=== PATIENT | female | born 1985 | race Two or more races ===

== ENCOUNTER → 2016-09-09 | Outpatient (REF) | payer OTHER ==
[2016-09-09 17:40] LABS: MEAN CORPUSCULAR HEMOGLOBIN 30.8 pg (27.0-33.0); MEAN CORPUSCULAR HGB CONC 32.4 g/dl (32.0-36.5); MEAN CORPUSCULAR VOLUME 95.2 fl (80.0-96.0); RED CELL DISTRIBUTION WIDTH 12.1 % (11.5-14.5); WHITE BLOOD COUNT 6.4 K/mm3 (4.0-10.0)
[2016-09-09 18:06] LABS: ALBUMIN 3.3 GM/DL (3.2-5.2); ALBUMIN/GLOBULIN RATIO 0.89 (1.00-1.93); ALKALINE PHOSPHATASE 58 U/L (45-117); ALT/SGPT 15 U/L (12-78); ANION GAP 8 MEQ/L (8-16); AST/SGOT 8 U/L (15-37); BILIRUBIN,TOTAL 0.3 MG/DL (0.2-1.0); BLOOD UREA NITROGEN 11 MG/DL (7-18); CALCIUM LEVEL 8.2 MG/DL (8.5-10.1); CARBON DIOXIDE LEVEL 27 MEQ/L (21-32); CHLORIDE LEVEL 104 MEQ/L (98-107); CHOLESTEROL LEVEL 199 MG/DL (<200); CREATININE FOR GFR 0.86 MG/DL (0.55-1.02); GLOMERULAR FILTRATION RATE > 60.0 (>60); GLUCOSE, FASTING 90 MG/DL (70-105); POTASSIUM SERUM 4.1 MEQ/L (3.5-5.1); SODIUM LEVEL 139 MEQ/L (136-145); TRIGLYCERIDES LEVEL 159 MG/DL (<150)
== END ==
LOC: M SFHCCLAY 10:50
PROVIDERS: ATTEND Nurse Practitioner Family
DX: E78.4 Other hyperlipidemia (principal); E55.9 Vitamin D deficiency, unspecified

== ENCOUNTER → 2016-11-06 | Outpatient (REF) | payer OTHER ==
[2016-11-06 17:39] LABS: ALBUMIN 3.4 GM/DL (3.2-5.2); ALBUMIN/GLOBULIN RATIO 0.85 (1.00-1.93); ALKALINE PHOSPHATASE 54 U/L (45-117); ALT/SGPT 18 U/L (12-78); ANION GAP 6 MEQ/L (8-16); AST/SGOT 14 U/L (15-37); BILIRUBIN,TOTAL 0.2 MG/DL (0.2-1.0); BLOOD UREA NITROGEN 9 MG/DL (7-18); CALCIUM LEVEL 8.8 MG/DL (8.5-10.1); CARBON DIOXIDE LEVEL 27 MEQ/L (21-32); CHLORIDE LEVEL 107 MEQ/L (98-107); CREATININE FOR GFR 0.87 MG/DL (0.55-1.02); GLOMERULAR FILTRATION RATE > 60.0 (>60); GLUCOSE, FASTING 116 MG/DL (70-105); POTASSIUM SERUM 3.7 MEQ/L (3.5-5.1); SODIUM LEVEL 140 MEQ/L (136-145); THYROXINE (T4) 12.1 UG/DL (4.5-12.0); TOTAL PROTEIN 7.4 GM/DL (6.4-8.2)
[2016-11-06 18:03] LABS: MEAN CORPUSCULAR HEMOGLOBIN 31.6 pg (27.0-33.0); RED CELL DISTRIBUTION WIDTH 12.3 % (11.5-14.5); WHITE BLOOD COUNT 6.5 K/mm3 (4.0-10.0)
== END ==
LOC: M LAB REF 16:37
PROVIDERS: ATTEND Allergy & Immunology Allergy
DX: L50.8 Other urticaria (principal); T78.3XXD Angioneurotic edema, subsequent encounter

== ENCOUNTER → 2017-02-06 | Outpatient (REF) | payer OTHER | LOC: M SFHCCLAY 11:03 | PROVIDERS: ATTEND Nurse Practitioner Family | DX: E78.4 Other hyperlipidemia (principal); E55.9 Vitamin D deficiency, unspecified ==

== ENCOUNTER → 2017-08-04 | Outpatient (REF) | payer OTHER ==
[2017-08-04 11:25] LABS: HEMATOCRIT 35.5 % (36.0-47.0); HEMOGLOBIN 11.4 g/dl (12.0-16.0); MEAN CORPUSCULAR HEMOGLOBIN 29.9 pg (27.0-33.0); MEAN CORPUSCULAR HGB CONC 32.1 g/dl (32.0-36.5); MEAN CORPUSCULAR VOLUME 93.2 fl (80.0-96.0); PLATELET COUNT, AUTOMATED 260 10^3/uL (150-450); RED BLOOD COUNT 3.81 10^6/uL (4.00-5.40); RED CELL DISTRIBUTION WIDTH 12.3 % (11.5-14.5); WHITE BLOOD COUNT 7.9 10^3/uL (4.0-10.0)
[2017-08-04 12:11] LABS: TOTAL 25(OH) VITAMIN D 33.3 NG/ML (30.0-100.0)
[2017-08-04 12:38] LABS: ALBUMIN 3.4 GM/DL (3.2-5.2); ALBUMIN/GLOBULIN RATIO 0.85 (1.00-1.93); ALKALINE PHOSPHATASE 54 U/L (45-117); ALT/SGPT 35 U/L (12-78); ANION GAP 7 MEQ/L (8-16); AST/SGOT 22 U/L (7-37); BILIRUBIN,TOTAL 0.3 MG/DL (0.2-1.0); BLOOD UREA NITROGEN 13 MG/DL (7-18); CALCIUM LEVEL 8.9 MG/DL (8.5-10.1); CARBON DIOXIDE LEVEL 27 MEQ/L (21-32); CHLORIDE LEVEL 105 MEQ/L (98-107); CHOLESTEROL LEVEL 182 MG/DL (<200); CHOLESTEROL RISK RATIO 2.716 (<5); CREATININE FOR GFR 0.83 MG/DL (0.55-1.30); GLOMERULAR FILTRATION RATE > 60.0 (>60); GLUCOSE, FASTING 75 MG/DL (70-100); HDL CHOLESTEROL 67 MG/DL (>40); LDL CHOLESTEROL 88.6 MG/DL (<100); NON-HDL-C 115 MG/DL; POTASSIUM SERUM 4.3 MEQ/L (3.5-5.1); SODIUM LEVEL 139 MEQ/L (136-145); TOTAL PROTEIN 7.4 GM/DL (6.4-8.2); TRIGLYCERIDES LEVEL 132 MG/DL (<150)
== END ==
LOC: M SFHCCLAY 08:57
DX: L50.1 Idiopathic urticaria (principal); E78.4 Other hyperlipidemia; R94.6 Abnormal results of thyroid function studies; E55.9 Vitamin D deficiency, unspecified
CPT/HCPCS: 84443

== ENCOUNTER → 2017-10-14 | Outpatient (REF) | payer OTHER | LOC: M SFHCCLAY 11:14 | DX: Z68.39 Body mass index [BMI] 39.0-39.9, adult (principal) ==

== ENCOUNTER → 2018-02-12 | Outpatient (REF) | payer OTHER ==
[2018-02-12 11:33] LABS: HEMATOCRIT 35.2 % (36.0-47.0); HEMOGLOBIN 11.4 g/dl (12.0-15.5); MEAN CORPUSCULAR HEMOGLOBIN 30.3 pg (27.0-33.0); MEAN CORPUSCULAR HGB CONC 32.4 g/dl (32.0-36.5); MEAN CORPUSCULAR VOLUME 93.6 fl (80.0-96.0); PLATELET COUNT, AUTOMATED 227 10^3/uL (150-450); RED BLOOD COUNT 3.76 10^6/uL (4.00-5.40); RED CELL DISTRIBUTION WIDTH 12.2 % (11.5-14.5); WHITE BLOOD COUNT 6.7 10^3/uL (4.0-10.0)
== END ==
LOC: M SFHCCLAY 09:19
DX: L50.1 Idiopathic urticaria (principal); R94.6 Abnormal results of thyroid function studies

== ENCOUNTER → 2018-08-16 | Outpatient (REF) | payer OTHER ==
[2018-08-16 17:32] LABS: ALBUMIN 3.2 GM/DL (3.2-5.2); ALT/SGPT 33 U/L (12-78); BILIRUBIN,TOTAL 0.5 MG/DL (0.2-1.0); BLOOD UREA NITROGEN 9 MG/DL (7-18); CARBON DIOXIDE LEVEL 28 MEQ/L (21-32); CHLORIDE LEVEL 104 MEQ/L (98-107); CHOLESTEROL LEVEL 193 MG/DL (<200); CHOLESTEROL RISK RATIO 3.641 (<5); CREATININE FOR GFR 0.62 MG/DL (0.55-1.30); GLOMERULAR FILTRATION RATE > 60.0 (>60); GLUCOSE, FASTING 95 MG/DL (70-100); HDL CHOLESTEROL 53 MG/DL (>40); LDL CHOLESTEROL 106 MG/DL (<100); NON-HDL-C 140 MG/DL; POTASSIUM SERUM 3.9 MEQ/L (3.5-5.1); SODIUM LEVEL 138 MEQ/L (136-145); THYROID STIMULATING HORMONE 0.005 uIU/ML (0.358-3.740); TOTAL 25(OH) VITAMIN D 22.5 NG/ML (30.0-100.0); TRIGLYCERIDES LEVEL 172 MG/DL (<150)
[2018-08-16 17:37] LABS: HEMATOCRIT 37.9 % (36.0-47.0); HEMOGLOBIN 12.1 g/dl (12.0-15.5); MEAN CORPUSCULAR HEMOGLOBIN 28.4 pg (27.0-33.0); MEAN CORPUSCULAR HGB CONC 31.9 g/dl (32.0-36.5); PLATELET COUNT, AUTOMATED 281 10^3/uL (150-450); RED BLOOD COUNT 4.26 10^6/uL (4.00-5.40); WHITE BLOOD COUNT 6.3 10^3/uL (4.0-10.0)
== END ==
LOC: M SFHCCLAY 11:30
PROVIDERS: ATTEND Nurse Practitioner Family
DX: L50.1 Idiopathic urticaria (principal); E78.49 Other hyperlipidemia; E03.9 Hypothyroidism, unspecified; E55.9 Vitamin D deficiency, unspecified

== ENCOUNTER → 2018-11-16 | Outpatient (REF) | payer OTHER ==
[2018-11-16 19:26] LABS: THYROID STIMULATING HORMONE 0.009 uIU/ML (0.358-3.740)
== END ==
LOC: M SFHCCLAY 10:00
PROVIDERS: ATTEND Nurse Practitioner Family
DX: E03.9 Hypothyroidism, unspecified (principal); E55.9 Vitamin D deficiency, unspecified

== ENCOUNTER → 2019-01-25 | Outpatient (REF) | payer OTHER | LOC: M SFHCCLAY 08:38 | PROVIDERS: ATTEND Nurse Practitioner Family | DX: E03.9 Hypothyroidism, unspecified (principal) ==

== ENCOUNTER → 2019-06-02 | Outpatient (REF) | payer OTHER | LOC: M SFHCCLAY 12:11 | PROVIDERS: ATTEND Nurse Practitioner Family | DX: E03.9 Hypothyroidism, unspecified (principal) ==

== ENCOUNTER → 2019-10-05 | Outpatient (REF) | payer OTHER ==
[2019-10-05 16:12] LABS: HEMATOCRIT 36.7 % (36.0-47.0); HEMOGLOBIN 11.8 g/dl (12.0-15.5); MEAN CORPUSCULAR HEMOGLOBIN 30.6 pg (27.0-33.0); MEAN CORPUSCULAR HGB CONC 32.2 g/dl (32.0-36.5); MEAN CORPUSCULAR VOLUME 95.3 fl (80.0-96.0); PLATELET COUNT, AUTOMATED 254 10^3/uL (150-450); RED BLOOD COUNT 3.85 10^6/uL (4.00-5.40); WHITE BLOOD COUNT 7.4 10^3/uL (4.0-10.0)
[2019-10-05 16:53] LABS: ALBUMIN 3.3 GM/DL (3.2-5.2); ALT/SGPT 14 U/L (12-78); BILIRUBIN,TOTAL 0.5 MG/DL (0.2-1.0); BLOOD UREA NITROGEN 12 MG/DL (7-18); CALCIUM LEVEL 8.5 MG/DL (8.5-10.1); CARBON DIOXIDE LEVEL 27 MEQ/L (21-32); CHLORIDE LEVEL 106 MEQ/L (98-107); CHOLESTEROL LEVEL 189 MG/DL (<200); CHOLESTEROL RISK RATIO 3.315 (<5); CREATININE FOR GFR 0.74 MG/DL (0.55-1.30); GLOMERULAR FILTRATION RATE > 60.0 (>60); GLUCOSE, FASTING 83 MG/DL (70-100); HDL CHOLESTEROL 57 MG/DL (>40); LDL CHOLESTEROL 93 MG/DL (<100); NON-HDL-C 132 MG/DL; SODIUM LEVEL 138 MEQ/L (136-145); TOTAL 25(OH) VITAMIN D 20.8 NG/ML (30.0-100.0); TOTAL PROTEIN 7.1 GM/DL (6.4-8.2); TRIGLYCERIDES LEVEL 195 MG/DL (<150)
== END ==
LOC: M SFHCCLAY 10:21
PROVIDERS: ATTEND Nurse Practitioner Family
DX: E78.5 Hyperlipidemia, unspecified (principal); E03.9 Hypothyroidism, unspecified; E55.9 Vitamin D deficiency, unspecified

== ENCOUNTER → 2020-01-03 | Outpatient (REF) | payer OTHER ==
[2020-01-03 20:15] LABS: BASO % 0.5 % (0.0-1.0); EOS # 0.2 10^3/uL (0.0-0.5); EOS % 3.4 % (0.0-3.0); HEMATOCRIT 36.4 % (36.0-47.0); LYMPH # 2.2 10^3/uL (1.5-5.0); MEAN CORPUSCULAR HEMOGLOBIN 31.2 pg (27.0-33.0); MEAN CORPUSCULAR VOLUME 94.5 fl (80.0-96.0); MONO # 0.6 10^3/uL (0.0-0.8); MONO % 10.4 % (0.0-5.0); NEUTROPHILS # 2.8 10^3/uL (1.5-8.5); NEUTROPHILS % 48.4 % (36.0-66.0); PLATELET COUNT, AUTOMATED 270 10^3/uL (150-450); RED BLOOD COUNT 3.85 10^6/uL (4.00-5.40); WHITE BLOOD COUNT 5.9 10^3/uL (4.0-10.0)
[2020-01-03 20:33] LABS: ALBUMIN 3.4 GM/DL (3.2-5.2); ALT/SGPT 22 U/L (12-78); BILIRUBIN,TOTAL 0.4 MG/DL (0.2-1.0); BLOOD UREA NITROGEN 11 MG/DL (7-18); CALCIUM LEVEL 9.2 MG/DL (8.5-10.1); CARBON DIOXIDE LEVEL 27 MEQ/L (21-32); CHLORIDE LEVEL 107 MEQ/L (98-107); CREATININE FOR GFR 0.81 MG/DL (0.55-1.30); GLOMERULAR FILTRATION RATE > 60.0 (>60); GLUCOSE, FASTING 97 MG/DL (70-100); SODIUM LEVEL 140 MEQ/L (136-145); TOTAL PROTEIN 7.1 GM/DL (6.4-8.2)
== END ==
LOC: M LABDRAWC 10:46
PROVIDERS: ATTEND Allergy & Immunology Allergy
DX: L50.1 Idiopathic urticaria (principal)

== ENCOUNTER → 2020-01-03 | Outpatient (REF) | payer OTHER ==
[2020-01-03 20:33] LABS: CHOLESTEROL LEVEL 182 MG/DL (<200); HDL CHOLESTEROL 56 MG/DL (>40); LDL CHOLESTEROL 96 MG/DL (<100); NON-HDL-C 126 MG/DL; RHEUMATOID FACTOR QUANT < 10.0 IU/ML (<15.0); TRIGLYCERIDES LEVEL 149 MG/DL (<150)
[2020-01-06 01:11] LABS: ANA (HEP2) Negative (.); Lyme Disease IgG/IgM Antibodie <0.91 ISR (0.00-0.90); Lyme Disease IgM Ab Quantitati <0.80 index (0.00-0.79)
== END ==
LOC: M LABDRAWC 10:46
PROVIDERS: ATTEND Nurse Practitioner Family
DX: M79.18 Myalgia, other site (principal)

== ENCOUNTER 2020-06-24 06:46 | Emergency (ER) | payer OTHER ==
[~2020-06-24] VITALS: Ht 165.1 cm; Wt 118.7 kg
[2020-06-24 06:46] VITALS: BP 176/88
--- OUTSIDE RECORDS SUMMARY | 2020-06-24 06:51 | CCD | Continuity of Care Document ---
Author Author Ramya LACKEY M.D. 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 1 Tristin Lackey M.D. 09/07/2019 Levothyroxine Sodium 25mcg Tablets take 1 tablet (25 mcg) by oral route once daily for 30 days Unknown Epipen 2-Chaitanya 0.3mg/0 .3ML Solution Auto-Inject inject 0.3 milliliter (0.3 mg) by intram uscular route once as needed for anaphylaxis 2units Tristin Lackey M.D. Tri-Linyah 0.18/0.21 5/0.25 mg-35 mcg Tablets Unknown Medications Administered in Office Medication SIG Qnty Indications Ordering Provider Date Xolair Injection Tristin Lackey M.D. 05/02/2020 Therapeutic, Prophylactic Or Diagnostic Injection Subq/Im Injection Tristin Ronaldos jessica, Courtney 05/02/2020 Xolair Injection Tristin Ziyad, Courtney 04/11/2020 Therapeutic, Prophylactic Or Diagnostic Injection Subq/Im Injection Tristin Chros jessica, Courtney 04/11/2020 Therapeutic, Prophylactic Or Diagnostic Injection Subq/Im Injection Tristin Ronaldos jessica, Courtney 03/15/2020 Xolair Injection Tristin Ziyad, Courtney 02/23/2020 Therapeutic, Prophylactic Or Diagnostic Injection Subq/Im Injection Tristin Chros towcandie, Courtney 02/23/2020 Xolair Injection Tristin Ziyad, Courtney 02/02/2020 Therapeutic, Prophylactic Or Diagnostic Injection Subq/Im Injection Tristin Chros jessica, Courtney 02/02/2020 Xolair Injection Tristin Courtney Lackey 01/12/2020 Therapeutic, Prophylactic Or Diagnostic Injection Subq/Im Injection Tristin Ronaldos jessica, Courtney 01/12/2020 Therapeutic, Prophylactic Or Diagnostic Injection Subq/Im Injection Tristin Amy lopez M.D. 12/22/2019 Xolair Injection Tristin Courtney Lackey 12/01/2019 Therapeutic, Prophylactic Or Diagnostic Injection Subq/Im Injection Tristin Ronaldos towcandie, Courtney 12/01/2019 Xolair Injection Tristin Ziyad, Courtney 11/10/2019 Therapeutic, Prophylactic Or Diagnostic Injection Subq/Im Injection Tristin Ronaldos towcandie, Courtney 11/10/2019 Xolair Injection Tristin Chrkimmy, Courtney 10/20/2019 Therapeutic, Prophylactic Or Diagnostic Injection Subq/Im Injection Tristin Chros jessica, Courtney 10/20/2019 Xolair Injection Tristin Chrkimmy, Courtney 09/30/2019 Therapeutic, Prophylactic Or Diagnostic Injection Subq/Im Injection Tristin Ronaldos jessica, Courtney 09/30/2019 Xolair Injection Tristin Ziyad, Courtney 09/06/2019 Therapeutic, Prophylactic Or Diagnostic Injection Subq/Im Injection Tristinteri lopez M.D. 09/06/2019 Xolair Injection Tristin Lackey M.D. 08/16/2019 Therapeutic, Prophylactic Or Diagnostic Injection Subq/Im Injection Tristin Amy lopez M.D. 08/16/2019 Xolair Injection Tristin Lackey M.D. 07/22/2019 Therapeutic, Prophylactic Or Diagnostic Injection Subq/Im Injection Tristinteri lopez M.D. 07/22/2019 Xolair Injection Tristin Lackey M.D. 06/27/2019 Therapeutic, Prophylactic Or Diagnostic Injection Subq/Im Injection Tristinteri lopez M.D. 06/27/2019 Xolair 150 MG Injection Tristin Lackey M.D. 05/30/2019 Chemotherpy Admin Subcutaneous/Im Non-Ho rmonal Anti-Neoplastic Injection Tristin bhatti M.D. 05/30/2019 Therapeutic, Prophylactic Or Diagnostic Injection Subq/Im Injection Tristinteri lopez M.D. 05/30/2019 Xolair 150 MG Injection Aracelis Stacie MATERIAL HANDLER 2ND SHIFT-C 05/09/2019 Xolair 150 MG Injection Aracelisjhon Quinones MATERIAL HANDLER 2ND SHIFT-C 05/09/2019 Chemotherpy Admin Subcutaneous/Im Non-Ho rmonal Anti-Neoplastic Injection Aracelis Mc shafer MATERIAL HANDLER 2ND SHIFT-C 05/09/2019 Therapeutic, Prophylactic Or Diagnostic Injection Subq/Im Injection Aracelisjhon Quinones MATERIAL HANDLER 2ND SHIFT-C 05/09/2019 Xolair 150 MG Injection Tristin Lackey M.D. 04/18/2019 Chemotherpy Admin Subcutaneous/Im Non-Ho rmonal Anti-Neoplastic Injection Tristinteri bhatti M.D. 04/18/2019 Therapeutic, Prophylactic Or Diagnostic Injection Subq/Im Injection Tristinteri lopez M.D. 04/18/2019 Xolair 150 MG Injection Tristin Lackey M.D. 03/24/2019 Chemotherpy Admin Subcutaneous/Im Non-Ho rmonal Anti-Neoplastic Injection Tristin bhatti M.D. 03/24/2019 Therapeutic, Prophylactic Or Diagnostic Injection Subq/Im Injection Tristin lopez M.D. 03/24/2019 Xolair 150 MG Injection Tristin Lackey M.D. 03/03/2019 Chemotherpy Admin Subcutaneous/Im Non-Ho rmonal Anti-Neoplastic Injection Tristin bhatti M.D. 03/03/2019 Therapeutic, Prophylactic Or Diagnostic Injection Subq/Im Injection Tristin lopez M.D. 03/03/2019 Xolair 150 MG Injection Tristin Lackey M.D. 02/11/2019 Chemotherpy Admin Subcutaneous/Im Non-Ho rmonal Anti-Neoplastic Injection Tristin bhatti M.D. 02/11/2019 Chemotherpy Admin Subcutaneous/Im Non-Ho rmonal Anti-Neoplastic Injection Tristin bhatti M.D. 02/11/2019 Xolair 150 MG Injection Tristin Lackey M.D. 01/21/2019 Therapeutic, Prophylactic Or Diagnostic Injection Subq/Im Injection Tristin lopez M.D. 01/21/2019 Xolair 150 MG Injection Tristin Lackey M.D. 12/31/2018 Therapeutic, Prophylactic Or Diagnostic Injection Subq/Im Injection Tristin lopez M.D. 12/31/2018 Immunizations Description No Information Available Vital Signs Date Vital Result Comment 12/28/2019 2:20pm Weight 257.12 lb Height 65 inches 5'5" Heart Rate 80 /min Respiratory Rate 16 /min BP Systolic 137 mmHg BP Diastolic 80 mmHg BMI (Body Mass Index) 42.8 kg/m2 07/22/2019 9:12am Weight 249.00 lb Height 65 inches 5'5" Heart Rate 75 /min Respiratory Rate 16 /min BP Systolic 131 mmHg BP Diastolic 81 mmHg BMI (Body Mass Index) 41.4 kg/m2 Results Test Acquired Date Facility Test Result H/L Range Note Comprehensive Metabolic Profil 01/03/2020 [facility] Glucose, Fasting 97 mg/dL Normal 70-100 Blood Urea Nitrogen 11 mg/dL Normal 7-18 Creatinine For GFR 0.81 mg/dL Normal 0.55-1.30 Glomerular Filtration Rate > 60.0 Normal >60 1 Sodium Level 140 mEq/L Normal 136-145 Potassium Serum 4.0 mEq/L Normal 3.5-5.1 Chloride Level 107 mEq/L Normal 98-107 Carbon Dioxide Level 27 mEq/L Normal 21-32 Anion Gap 6 mEq/L Low 8-16 Calcium Level 9.2 mg/dL Normal 8.5-10.1 Ast/Sgot 12 U/L Normal 7-37 Alt/SGPT 22 U/L Normal 12-78 Alkaline Phosphatase 53 U/L Normal 45-117 Bilirubin,Total 0.4 mg/dL Normal 0.2-1.0 Total Protein 7.1 GM/DL Normal 6.4-8.2 Albumin 3.4 GM/DL Normal 3.2-5.2 Albumin/Globulin Ratio 0.9 Low 1.2-2.2 CBC With Differential 01/03/2020 [facility] White Blood Count 5.9 10 Normal 4.0-10.0 Red Blood Count 3.85 10 Low 4.00-5.40 Hemoglobin 12.0 g/dL Normal 12.0-15.5 Hematocrit 36.4 % Normal 36.0-47.0 Mean Corpuscular Volume 94.5 fl Normal 80.0-96.0 Mean Corpuscular Hemoglobin 31.2 pg Normal 27.0-33.0 Mean Corpuscular HGB Conc 33.0 g/dL Normal 32.0-36.5 Red Cell Distribution Width 11.9 % Normal 11.5-14.5 Platelet Count, Automated 270 10 Normal 150-450 Neutrophils % 48.4 % Normal 36.0-66.0 Lymph % 37.0 % Normal 24.0-44.0 [place] % 10.4 % High 0.0-5.0 Eos % 3.4 % High 0.0-3.0 Baso % 0.5 % Normal 0.0-1.0 Immature Granulocyte % 0.3 % Normal 0-3.0 Nucleated Red Blood Cell % 0.0 % Normal 0-0 Neutrophils # 2.8 10 Normal 1.5-8.5 Lymph # 2.2 10 Normal 1.5-5.0 [place] # 0.6 10 Normal 0.0-0.8 Eos # 0.2 10 Normal 0.0-0.5 Baso # 0.0 10 Normal 0.0-0.2 1 Units are mL/min/1.73 m2 Chronic Kidney Disease Staging per NKF: Stage I & II GFR >=60 Normal to Mildly Decreased Stage III GFR 30-59 Moderately Decreased Stage IV GFR 15-29 Severely Decreased Stage V GFR <15 Very Little GFR Left ESRD GFR <15 on CLINICAL DATA ABSTRACTOR Procedures Date Code Description Status 05/02/2020 60781 Therapeutic, Prophylactic Or Priya gnostic Injection Subq/Im Completed 04/11/2020 04213 Therapeutic, Prophylactic Or Priya gnostic Injection Subq/Im Completed 03/15/2020 36217 Therapeutic, Prophylactic Or Priya gnostic Injection Subq/Im Completed 02/23/2020 24687 Therapeutic, Prophylactic Or Priya gnostic Injection Subq/Im Completed 02/02/2020 12978 Therapeutic, Prophylactic Or Priya gnostic Injection Subq/Im Completed 01/12/2020 76612 Therapeutic, Prophylactic Or Priya gnostic Injection Subq/Im Completed 12/22/2019 34323 Therapeutic, Prophylactic Or Priya gnostic Injection Subq/Im Completed 12/01/2019 63288 Therapeutic, Prophylactic Or Priya gnostic Injection Subq/Im Completed 11/10/2019 00102 Therapeutic, Prophylactic Or Priya gnostic Injection Subq/Im Completed Medical Devices Description No Information Available Encounters Type Date Location Provider Dx Diagnosis Office Visit 12/28/2019 2:15p Main Office Tristin Lackey M.D. L50.1 Idiopathic urticaria Assessments Date Code Description Provider 05/02/2020 L50.1 Idiopathic urticaria Tristin oneal M.D. 05/02/2020 L50.1 Idiopathic urticaria Tristin oneal M.D. Plan of Treatment Future Appointment(s):* 05/23/2020 1:00 pm - Tristin Lackey M.D. at Main Office 12/28/2019 - Tristin Lackey M.D.* L50.1 Idiopathic urticaria* Recommendations:* May stay off Xyzal for now. May need to restart if symptoms start increasing. May still take extra Benadryl vs Hydroxyzine for breakthrough hives. The patient should return for next Xolair injection in 3 weeks as planned. The patient knows to bring the Epi-pen for each injection because of the risk of delayed anaphylaxis. * All * Follow up:* 12 months. Sooner if needed. Functional Status Description No Information Available Mental Status Description No Information Available Referrals Description No Information Available
--- OUTSIDE RECORDS SUMMARY | 2020-06-24 06:51 | CCD | Continuity of Care Document ---
Author Author Ramya LACKEY M.D. Organization Unknown Address [address], [address], [place] [address] Phone [phone] Care Team Providers Care Automatic Mounter Name Role Phone Marleny Valdovinos NP AUTM [...] 2ml L50. 1 Tristin Lackey M.D. 09/07/2019 Levocetirizine Dihydrochloride 5mg Tablets take one tablet by mouth every morning 30tabs Jeovany Lackey M.D. 01/06/2019 Levothyroxine Sodium 25mcg Tablets take 1 tablet (25 mcg) by oral route once daily for 30 days Unknown Hydroxyzine HCL 25mg Tablets take two tablets by mouth at noon and take three tablets at bedtime 150tabs Tristin Lackey M.D. Epipen 2-Chaitanya 0.3mg/0 .3ML Solution Auto-Inject inject 0.3 milliliter (0.3 mg) by intram uscular route once as needed for anaphylaxis 2units Tristin Lackey M.D. Tri-Linyah 0.18/0.21 5/0.25 mg-35 mcg Tablets Unknown Medications Administered in Office Medication SIG Qnty Indications Ordering Provider Date Xolair Sharif Lackey M.D. 06/07/2020 Therapeutic, Prophylactic Or Diagnostic Injection Subq/Im Injection Tristin lopez M.D. 06/07/2020 Xolair Injection Tristin Lackey M.D. 05/02/2020 Therapeutic, Prophylactic Or Diagnostic Injection Subq/Im Injection Tristin lopez M.D. 05/02/2020 Xolair Sharif Lackey M.D. 04/11/2020 Therapeutic, Prophylactic Or Diagnostic Injection Subq/Im Injection Tristin lopez M.D. 04/11/2020 Therapeutic, Prophylactic Or Diagnostic Injection Subq/Im Injection Tristin lopez M.D. 03/15/2020 Xolair Injection Tristin Lackey M.D. 02/23/2020 Therapeutic, Prophylactic Or Diagnostic Injection Subq/Im Injection Tristin lopez M.D. 02/23/2020 Xolair Sharif Lackey M.D. 02/02/2020 Therapeutic, Prophylactic Or Diagnostic Injection Subq/Im Injection Tristin lopez M.D. 02/02/2020 Xolair Injection Tristin Lackey M.D. 01/12/2020 Therapeutic, Prophylactic Or Diagnostic Injection Subq/Im Injection Tristin lopez M.D. 01/12/2020 Therapeutic, Prophylactic Or Diagnostic Injection Subq/Im Injection Tristin lopez M.D. 12/22/2019 Xolair Injection Tristin Lackey M.D. 12/01/2019 Therapeutic, Prophylactic Or Diagnostic Injection Subq/Im Injection Tristin lopez M.D. 12/01/2019 Xolair Injection Tristin Lackey M.D. 11/10/2019 Therapeutic, Prophylactic Or Diagnostic Injection Subq/Im Injection Tristin lopez M.D. 11/10/2019 Xolair Injection Tristin Ronaldkimmy, Courtney 10/20/2019 Therapeutic, Prophylactic Or Diagnostic Injection Subq/Im Injection Tristin Amy peraltaCourtney schreiber 10/20/2019 Xolair Injection Tristin Humbertorama, Courtney 09/30/2019 Therapeutic, Prophylactic Or Diagnostic Injection Subq/Im Injection Tristin Amy peraltaCourtney schreiber 09/30/2019 Xolair Injection Tristin Ronaldkimmy, Courtney 09/06/2019 Therapeutic, Prophylactic Or Diagnostic Injection Subq/Im Injection Tristin Amy peraltacandie, Courtney 09/06/2019 Xolair Injection Tristin Ronaldkimmy, Courtney 08/16/2019 Therapeutic, Prophylactic Or Diagnostic Injection Subq/Im Injection Tristin Amy peraltacandie, Courtney 08/16/2019 Xolair Injection Tristin ChrCourtney oneal 07/22/2019 Therapeutic, Prophylactic Or Diagnostic Injection Subq/Im Injection Tristin Amy peraltacandie, Courtney 07/22/2019 Xolair Injection Tristin Chrkimmy, Courtney 06/27/2019 Therapeutic, Prophylactic Or Diagnostic Injection Subq/Im Injection Tristin Amy peraltaCourtney schreiber 06/27/2019 Xolair 150 MG Injection Tristin ChrCourtney oneal 05/30/2019 Chemotherpy Admin Subcutaneous/Im Non-Ho rmonal Anti-Neoplastic Injection Tristinteri bhatti M.D. 05/30/2019 Therapeutic, Prophylactic Or Diagnostic Injection Subq/Im Injection Tristin Amy peraltacandie, Courtney 05/30/2019 Xolair 150 MG Injection Aracelis Stacie, SUMATRA OPENER-C 05/09/2019 Xolair 150 MG Injection Aracelis Stacie, SUMATRA OPENER-C 05/09/2019 Chemotherpy Admin Subcutaneous/Im Non-Ho rmonal Anti-Neoplastic Injection Aracelis Coa soni, SUMATRA OPENER-C 05/09/2019 Therapeutic, Prophylactic Or Diagnostic Injection Subq/Im Injection Aracelis Stacie , SUMATRA OPENER-C 05/09/2019 Xolair 150 MG Injection Tristin Courtney Lackey 04/18/2019 Chemotherpy Admin Subcutaneous/Im Non-Ho rmonal Anti-Neoplastic Injection Tristin bhatti M.D. 04/18/2019 Therapeutic, Prophylactic Or Diagnostic Injection Subq/Im Injection Tristin lopez M.D. 04/18/2019 Xolair 150 MG Injection [...] H/L Range Note Comprehensive Metabolic Profil 01/03/2020 [facility] Glucose, Fasting 97 mg/dL Normal 70-100 Blood [...] 0.9 Low 1.2-2.2 CBC With Differential 01/03/2020 [facility] White Blood Count 5.9 10 Normal 4.0-10.0 [...] 36.0-66.0 Lymph % 37.0 % Normal 24.0-44.0 [place] % 10.4 % High 0.0-5.0 Eos % 3.4 % High 0.0-3.0 Baso % 0.5 % Normal 0.0-1.0 Immature Granulocyte % 0.3 % Normal 0-3.0 Nucleated Red Blood Cell % 0.0 % Normal 0-0 Neutrophils # 2.8 10 Normal 1.5-8.5 Lymph # 2.2 10 Normal 1.5-5.0 [place] # 0.6 10 Normal 0.0-0.8 Eos # 0.2 10 Normal 0.0-0.5 Baso # 0.0 10 Normal 0.0-0.2 1 Units are mL/min/1.73 m2 Chronic Kidney Disease Staging per NKF: Stage I & II GFR >=60 Normal to Mildly Decreased Stage III GFR 30-59 Moderately Decreased Stage IV GFR 15-29 Severely Decreased Stage V GFR <15 Very Little GFR Left ESRD GFR <15 on BUFFER OPERATOR Procedures Date Code Description Status 06/07/2020 04654 Therapeutic, Prophylactic Or Priya gnostic Injection Subq/Im Completed 05/02/2020 51752 Therapeutic, Prophylactic Or Priya gnostic Injection Subq/Im Completed 04/11/2020 45696 Therapeutic, Prophylactic Or Priya gnostic Injection Subq/Im Completed 03/15/2020 09756 Therapeutic, Prophylactic Or Priya gnostic Injection Subq/Im Completed 02/23/2020 89341 Therapeutic, Prophylactic Or Priya gnostic Injection Subq/Im Completed 02/02/2020 94014 Therapeutic, Prophylactic Or Priya gnostic Injection Subq/Im Completed 01/12/2020 85154 Therapeutic, Prophylactic Or Priya gnostic Injection Subq/Im Completed 12/22/2019 66832 Therapeutic, Prophylactic Or Priya gnostic Injection Subq/Im Completed Medical Devices Description No Information Available Encounters Type Date Location Provider Dx Diagnosis Office Visit 12/28/2019 2:15p Main Office Tristin Lackey M.D. L50.1 Idiopathic urticaria Assessments Date Code Description Provider 06/07/2020 L50.1 Idiopathic urticaria Tristin oneal M.D. 06/07/2020 L50.1 Idiopathic urticaria Tristin oneal M.D. Plan of Treatment Future Appointment(s):* 06/28/2020 1:00 pm - Tristin Lackey M.D. at [...]
--- OUTSIDE RECORDS SUMMARY | 2020-06-24 06:51 | CCD | Continuity of Care Document ---
Author Author Ramya LACKEY M.D. Organization Unknown Address [address], [address], [place] [address] Phone [phone] Care Team Providers Care Railroad Mechanic Name Role Phone Marleny Valdovinos NP AUTM [...] Tristin Amy peraltaCourtney schreiber 09/30/2019 Xolair Injection Rtistin Ronaldkimmy, Courtney 09/06/2019 Therapeutic, Prophylactic Or Diagnostic [...] 05/30/2019 Xolair 150 MG Injection Aracelis Stacie, PIPE LINE WALKER-C 05/09/2019 Xolair 150 MG Injection Aracelis Stacie, PIPE LINE WALKER-C 05/09/2019 Chemotherpy Admin Subcutaneous/Im Non-Ho rmonal Anti-Neoplastic Injection Aracelis Coa soni, PIPE LINE WALKER-C 05/09/2019 Therapeutic, Prophylactic Or Diagnostic Injection Subq/Im Injection Aracelis Stacie , PIPE LINE WALKER-C 05/09/2019 Xolair 150 MG Injection Tristin Courtney [...] H/L Range Note Comprehensive Metabolic Profil 01/03/2020 [facility] Glucose, Fasting 97 mg/dL Normal 70-100 Blood [...] 0.9 Low 1.2-2.2 CBC With Differential 01/03/2020 [facility] White Blood Count 5.9 10 Normal 4.0-10.0 [...] 36.0-66.0 Lymph % 37.0 % Normal 24.0-44.0 [place] % 10.4 % High 0.0-5.0 Eos % 3.4 % High 0.0-3.0 Baso % 0.5 % Normal 0.0-1.0 Immature Granulocyte % 0.3 % Normal 0-3.0 Nucleated Red Blood Cell % 0.0 % Normal 0-0 Neutrophils # 2.8 10 Normal 1.5-8.5 Lymph # 2.2 10 Normal 1.5-5.0 [place] # 0.6 10 Normal 0.0-0.8 Eos # 0.2 10 Normal 0.0-0.5 Baso # 0.0 10 Normal 0.0-0.2 1 Units are mL/min/1.73 m2 Chronic Kidney Disease Staging per NKF: Stage I & II GFR >=60 Normal to Mildly Decreased Stage III GFR 30-59 Moderately Decreased Stage IV GFR 15-29 Severely Decreased Stage V GFR <15 Very Little GFR Left ESRD GFR <15 on CRACKING AND FANNING MACHINE OPERATOR Procedures Date Code Description Status 06/07/2020 07025 Therapeutic, Prophylactic Or Priya gnostic Injection Subq/Im Completed 05/02/2020 26010 Therapeutic, Prophylactic Or Priya gnostic Injection Subq/Im Completed 04/11/2020 93132 Therapeutic, Prophylactic Or Priya gnostic Injection Subq/Im Completed 03/15/2020 61771 Therapeutic, Prophylactic Or Priya gnostic Injection Subq/Im Completed 02/23/2020 02260 Therapeutic, Prophylactic Or Priya gnostic Injection Subq/Im Completed 02/02/2020 28046 Therapeutic, Prophylactic Or Priya gnostic Injection Subq/Im Completed 01/12/2020 93112 Therapeutic, Prophylactic Or Priya gnostic Injection Subq/Im Completed 12/22/2019 72217 Therapeutic, Prophylactic Or Priya gnostic Injection Subq/Im [...]
--- OUTSIDE RECORDS SUMMARY | 2020-06-24 06:51 | CCD | Continuity of Care Document ---
Author Author Rayma LACKEY M.D. Organization Unknown Address [address], [address], [place] [address] Phone [phone] Care Team Providers Care Access Rep Name Role Phone Marleny Valdovinos NP AUTM [...] Tristin Amy peraltacandie, Courtney 08/16/2019 Xolair Injection Tristni ChrCourtney oneal 07/22/2019 Therapeutic, Prophylactic Or Diagnostic [...] 05/30/2019 Xolair 150 MG Injection Aracelis Stacie, LADLE POURER-C 05/09/2019 Xolair 150 MG Injection Aracelis Stacie, LADLE POURER-C 05/09/2019 Chemotherpy Admin Subcutaneous/Im Non-Ho rmonal Anti-Neoplastic Injection Aracelis Coa soni, LADLE POURER-C 05/09/2019 Therapeutic, Prophylactic Or Diagnostic Injection Subq/Im Injection Aracelis Stacie , LADLE POURER-C 05/09/2019 Xolair 150 MG Injection Tristin Courtney [...] M.D. 01/21/2019 Xolair 150 MG Injection Tristin Lackye M.D. 12/31/2018 Therapeutic, Prophylactic Or Diagnostic Injection [...] H/L Range Note Comprehensive Metabolic Profil 01/03/2020 [facility] Glucose, Fasting 97 mg/dL Normal 70-100 [...] 0.9 Low 1.2-2.2 CBC With Differential 01/03/2020 [facility] White Blood Count 5.9 10 Normal [...] 36.0-66.0 Lymph % 37.0 % Normal 24.0-44.0 [place] % 10.4 % High 0.0-5.0 Eos % 3.4 % High 0.0-3.0 Baso % 0.5 % Normal 0.0-1.0 Immature Granulocyte % 0.3 % Normal 0-3.0 Nucleated Red Blood Cell % 0.0 % Normal 0-0 Neutrophils # 2.8 10 Normal 1.5-8.5 Lymph # 2.2 10 Normal 1.5-5.0 [place] # 0.6 10 Normal 0.0-0.8 Eos # 0.2 10 Normal 0.0-0.5 Baso # 0.0 10 Normal 0.0-0.2 1 Units are mL/min/1.73 m2 Chronic Kidney Disease Staging per NKF: Stage I & II GFR >=60 Normal to Mildly Decreased Stage III GFR 30-59 Moderately Decreased Stage IV GFR 15-29 Severely Decreased Stage V GFR <15 Very Little GFR Left ESRD GFR <15 on GAS DISPATCHER Procedures Date Code Description Status 06/07/2020 37445 Therapeutic, Prophylactic Or Priya gnostic Injection Subq/Im Completed 05/02/2020 03711 Therapeutic, Prophylactic Or Priya gnostic Injection Subq/Im Completed 04/11/2020 95601 Therapeutic, Prophylactic Or Priya gnostic Injection Subq/Im Completed 03/15/2020 26777 Therapeutic, Prophylactic Or Priya gnostic Injection Subq/Im Completed 02/23/2020 43167 Therapeutic, Prophylactic Or Priya gnostic Injection Subq/Im Completed 02/02/2020 36321 Therapeutic, Prophylactic Or Priya gnostic Injection Subq/Im Completed 01/12/2020 59244 Therapeutic, Prophylactic Or Priya gnostic Injection Subq/Im Completed 12/22/2019 70073 Therapeutic, Prophylactic Or Priya gnostic Injection Subq/Im [...]
[2020-06-24] MEDS ORDERED: TRI-TAB16 (06:52)
--- OUTSIDE RECORDS SUMMARY | 2020-06-24 06:52 | CCD | Continuity of Care Document ---
Author Author Ramya LACKEY M.D. Organization Unknown Address [address], [place] [address] Phone [phone] Care Team Providers Care Ship Erector Name Role Phone Marleny Valdovinos NP AUTM [...] Amy lopez M.D. 08/16/2019 Xolair Injection Tristin Lackye M.D. 07/22/2019 Therapeutic, Prophylactic Or Diagnostic Injection [...] 05/30/2019 Xolair 150 MG Injection Aracelis Stacie LIFE SKILLS COORDINATOR VOLUNTEER-C 05/09/2019 Xolair 150 MG Injection Aracelisjhon Quinones LIFE SKILLS COORDINATOR VOLUNTEER-C 05/09/2019 Chemotherpy Admin Subcutaneous/Im Non-Ho rmonal Anti-Neoplastic Injection Aracelis Mc shafer LIFE SKILLS COORDINATOR VOLUNTEER-C 05/09/2019 Therapeutic, Prophylactic Or Diagnostic Injection Subq/Im Injection Aracelisjhon Quinones LIFE SKILLS COORDINATOR VOLUNTEER-C 05/09/2019 Xolair 150 MG Injection Tristin Lackey [...] H/L Range Note Comprehensive Metabolic Profil 01/03/2020 [facility] Glucose, Fasting 97 mg/dL Normal 70-100 Blood [...] 0.9 Low 1.2-2.2 CBC With Differential 01/03/2020 [facility] White Blood Count 5.9 10 Normal 4.0-10.0 [...] 36.0-66.0 Lymph % 37.0 % Normal 24.0-44.0 [place] % 10.4 % High 0.0-5.0 Eos % 3.4 % High 0.0-3.0 Baso % 0.5 % Normal 0.0-1.0 Immature Granulocyte % 0.3 % Normal 0-3.0 Nucleated Red Blood Cell % 0.0 % Normal 0-0 Neutrophils # 2.8 10 Normal 1.5-8.5 Lymph # 2.2 10 Normal 1.5-5.0 [place] # 0.6 10 Normal 0.0-0.8 Eos # 0.2 10 Normal 0.0-0.5 Baso # 0.0 10 Normal 0.0-0.2 1 Units are mL/min/1.73 m2 Chronic Kidney Disease Staging per NKF: Stage I & II GFR >=60 Normal to Mildly Decreased Stage III GFR 30-59 Moderately Decreased Stage IV GFR 15-29 Severely Decreased Stage V GFR <15 Very Little GFR Left ESRD GFR <15 on ADULT CROSSING GUARD Procedures Date Code Description Status 05/02/2020 66648 Therapeutic, Prophylactic Or Priya gnostic Injection Subq/Im Completed 04/11/2020 [id number] Therapeutic, Prophylactic Or Priya gnostic Injection Subq/Im Completed 03/15/2020 90120 Therapeutic, Prophylactic Or Priya gnostic Injection Subq/Im Completed 02/23/2020 34935 Therapeutic, Prophylactic Or Priya gnostic Injection Subq/Im Completed 02/02/2020 56928 Therapeutic, Prophylactic Or Priya gnostic Injection Subq/Im Completed 01/12/2020 [id number] Therapeutic, Prophylactic Or Priya gnostic Injection Subq/Im Completed 12/22/2019 14924 Therapeutic, Prophylactic Or Priya gnostic Injection Subq/Im Completed 12/01/2019 52048 Therapeutic, Prophylactic Or Priya gnostic Injection Subq/Im Completed 11/10/2019 51730 Therapeutic, Prophylactic Or Priya gnostic Injection Subq/Im [...]
--- OUTSIDE RECORDS SUMMARY | 2020-06-24 06:52 | CCD | Continuity of Care Document ---
Author Author Ramya LACKEY M.D. Organization Unknown Address [address], [address], [place] [address] Phone [phone] Care Team Providers Care Relief Worker Name Role Phone Marleny Valdovinos NP AUTM [...] Syrin ge inject 300 mg subcutaneously every 4 weeks at two sites 2ml L50. 1 [...] Provider Date Xolair Injection Tristin Lackey M.D. 04/11/2020 Therapeutic, Prophylactic Or Diagnostic Injection Subq/Im Injection Tristin Chros towcandie, Courtney 04/11/2020 Therapeutic, Prophylactic Or Diagnostic Injection Subq/Im Injection Tristin Chros towcandie, Courtney 03/15/2020 Xolair Injection Tristin Chrostrama, Courtney 02/23/2020 Therapeutic, Prophylactic Or Diagnostic Injection Subq/Im Injection Tristin Chros towcandie, Courtney 02/23/2020 Xolair Injection Tristin Chrostrama, Courtney 02/02/2020 Therapeutic, Prophylactic Or Diagnostic Injection Subq/Im Injection Tristin Chros towcandie, Courtney 02/02/2020 Xolair Injection Tristin Chrostrama, Courtney 01/12/2020 Therapeutic, Prophylactic Or Diagnostic Injection Subq/Im Injection Tristin Chros towcandie, Courtney 01/12/2020 Therapeutic, Prophylactic Or Diagnostic Injection Subq/Im Injection Tristin Ronaldos jessica, Courtney 12/22/2019 Xolair Injection Tristin Ronaldostrama, Courtney 12/01/2019 Therapeutic, Prophylactic Or Diagnostic Injection Subq/Im Injection Tristin Chros towcandie, Courtney 12/01/2019 Xolair Injection Tristin Ziyad, Courtney 11/10/2019 Therapeutic, Prophylactic Or Diagnostic Injection Subq/Im Injection Tristin Chros towcandie, Courtney 11/10/2019 Xolair Injection Tristin Ronaldostrama, Courtney 10/20/2019 Therapeutic, Prophylactic Or Diagnostic Injection Subq/Im Injection Tristin Chros towcandie, Courtney 10/20/2019 Xolair Injection Tristin Chrostrama, Courtney 09/30/2019 Therapeutic, Prophylactic Or Diagnostic Injection Subq/Im Injection Tristin Chros towcandie, Courtney 09/30/2019 Xolair Injection Tristin Chrostrama, Courtney 09/06/2019 Therapeutic, Prophylactic Or Diagnostic Injection Subq/Im Injection Tristin Chros towcandie, Courtney 09/06/2019 Xolair Injection Tristin Ziyad, Courtney 08/16/2019 Therapeutic, Prophylactic Or Diagnostic Injection Subq/Im Injection Tristin lopez M.D. 08/16/2019 Xolair Injection Tristin Lackey M.D. 07/22/2019 Therapeutic, Prophylactic Or Diagnostic Injection Subq/Im Injection Tristin lopez M.D. 07/22/2019 Xolair Injection Tristin Lackey M.D. 06/27/2019 Therapeutic, Prophylactic Or Diagnostic Injection Subq/Im Injection Tristin lopez M.D. 06/27/2019 Xolair 150 MG Injection Tristin Lackey M.D. 05/30/2019 Chemotherpy Admin Subcutaneous/Im Non-Ho rmonal Anti-Neoplastic Injection Tristin bhatti M.D. 05/30/2019 Therapeutic, Prophylactic Or Diagnostic Injection Subq/Im Injection Tristin lopez M.D. 05/30/2019 Xolair 150 MG Injection Aracelis Quinones PROCESS LINE OPERATOR-C 05/09/2019 Xolair 150 MG Injection LETI BethP-C 05/09/2019 Chemotherpy Admin Subcutaneous/Im Non-Ho rmonal Anti-Neoplastic Injection Aracelis shafer PROCESS LINE OPERATOR-C 05/09/2019 Therapeutic, Prophylactic Or Diagnostic Injection Subq/Im Injection MAHAD Beth-C 05/09/2019 Xolair 150 MG Injection Tristin Lackey [...] H/L Range Note Comprehensive Metabolic Profil 01/03/2020 [facility] Glucose, Fasting 97 mg/dL Normal 70-100 Blood [...] 0.9 Low 1.2-2.2 CBC With Differential 01/03/2020 [facility] White Blood Count 5.9 10 Normal 4.0-10.0 [...] 36.0-66.0 Lymph % 37.0 % Normal 24.0-44.0 [place] % 10.4 % High 0.0-5.0 Eos % 3.4 % High 0.0-3.0 Baso % 0.5 % Normal 0.0-1.0 Immature Granulocyte % 0.3 % Normal 0-3.0 Nucleated Red Blood Cell % 0.0 % Normal 0-0 Neutrophils # 2.8 10 Normal 1.5-8.5 Lymph # 2.2 10 Normal 1.5-5.0 [place] # 0.6 10 Normal 0.0-0.8 Eos # 0.2 10 Normal 0.0-0.5 Baso # 0.0 10 Normal 0.0-0.2 1 Units are mL/min/1.73 m2 Chronic Kidney Disease Staging per NKF: Stage I & II GFR >=60 Normal to Mildly Decreased Stage III GFR 30-59 Moderately Decreased Stage IV GFR 15-29 Severely Decreased Stage V GFR <15 Very Little GFR Left ESRD GFR <15 on LAST PULLER Procedures Date Code Description Status 04/11/2020 [id number] Therapeutic, Prophylactic Or Priya gnostic Injection Subq/Im Completed 03/15/2020 [id number] Therapeutic, Prophylactic Or Priya gnostic Injection Subq/Im Completed 02/23/2020 36742 Therapeutic, Prophylactic Or Priya gnostic Injection Subq/Im Completed 02/02/2020 80950 Therapeutic, Prophylactic Or Priya gnostic Injection Subq/Im Completed 01/12/2020 58369 Therapeutic, Prophylactic Or Priya gnostic Injection Subq/Im Completed 12/22/2019 45249 Therapeutic, Prophylactic Or Priya gnostic Injection Subq/Im Completed 12/01/2019 68939 Therapeutic, Prophylactic Or Priya gnostic Injection Subq/Im Completed 11/10/2019 77929 Therapeutic, Prophylactic Or Priya gnostic Injection Subq/Im Completed 10/20/2019 61437 Therapeutic, Prophylactic Or Priya gnostic Injection Subq/Im Completed Medical Devices Description No Information Available Encounters Type Date Location Provider Dx Diagnosis Office Visit 12/28/2019 2:15p Main Office Tristin Lackye M.D. L50.1 Idiopathic urticaria Assessments Date Code Description Provider 04/11/2020 L50.1 Idiopathic urticaria Tristin oneal M.D. 04/11/2020 L50.1 Idiopathic urticaria Tristin oneal M.D. Plan of Treatment Future Appointment(s):* 05/02/2020 1:00 pm - Tristin Lackey M.D. at [...]
--- OUTSIDE RECORDS SUMMARY | 2020-06-24 06:52 | CCD ---
Author Author [facility] Organization [facility] Address Unknown Phone Unavailable Care Team Providers Care Aviation Medicine Specialist Name Role Phone ADA DAWSON MD Unavailable Unavailable ADA DAWSON MD Unavailable Unavailable ADA DAWSON MD Unavailable Unavailable ADA DAWSON MD Unavailable Unavailable ADA DAWSON MD Unavailable Unavailable ADA DAWSON MD Unavailable Unavailable ADA DAWSON MD Unavailable Unavailable ADA DAWSON MD Unavailable Unavailable ADA DAWSON MD Unavailable Unavailable ADA DAWSON MD Unavailable Unavailable ADA DAWSON MD Unavailable Unavailable ADA DAWSON MD Unavailable Unavailable ADA DAWSON MD Unavailable Unavailable ADA DAWSON MD Unavailable Unavailable ADA DAWSON MD Unavailable Unavailable ADA DAWSON MD Unavailable Unavailable ADA DAWSON MD Unavailable Unavailable ADA DAWSON MD Unavailable Unavailable ADA DAWSON MD Unavailable Unavailable ADA DAWSON MD Unavailable Unavailable ADA DAWSON MD Unavailable Unavailable ADA DAWSON MD Unavailable Unavailable ADA DAWSON MD Unavailable Unavailable ADA DAWSON MD Unavailable Unavailable ADA DAWSON MD Unavailable Unavailable CHROSTOWSKI, ADA BAUER Unavailable Unavailable CHROSTOWSKI, ADA BAUER Unavailable Unavailable CHROSTOWSKI, ADA MD Unavailable Unavailable CHROSTOWSKI, ADA MD Unavailable Unavailable CHROSTOWSKI, ADA MD Unavailable Unavailable CHROSTOWSKI, ADA MD Unavailable Unavailable CHROSTOWSKI, ADA MD Unavailable Unavailable CHROSTOWSKI, ADA MD Unavailable Unavailable CHROSTOWSKI, ADA MD Unavailable Unavailable CHROSTOWSKI, ADA MD Unavailable Unavailable CHROSTOWSKI, ADA MD Unavailable Unavailable CHROSTOWSKI, ADA MD Unavailable Unavailable CHROSTOWSKI, ADA MD Unavailable Unavailable CHROSTOWSKI, ADA MD Unavailable Unavailable CHROSTOWSKI, ADA MD Unavailable Unavailable Stacie, L Aracelis PAYROLL EXAMINER Unavailable Unavailable Stacie, L Aracelis PAYROLL EXAMINER Unavailable Unavailable Mcneil, L Aracelis PAYROLL EXAMINER Unavailable Unavailable Stacie, L Aracelis PAYROLL EXAMINER Unavailable Unavailable Mcneil, L Aracelis PAYROLL EXAMINER Unavailable Unavailable Mcneil, L Aracelis PAYROLL EXAMINER Unavailable Unavailable Stacie, L Aracelis PAYROLL EXAMINER Unavailable Unavailable Mcneil, L Aracelis PAYROLL EXAMINER Unavailable Unavailable Mcneil, L Aracelis PAYROLL EXAMINER Unavailable Unavailable Stacie, L Aracelis PAYROLL EXAMINER Unavailable Unavailable Mcneil, L Aracelis PAYROLL EXAMINER Unavailable Unavailable Mcneil, L Aracelis PAYROLL EXAMINER Unavailable Unavailable Mcneil, L Aracelis PAYROLL EXAMINER Unavailable Unavailable Stacie, L Aracelis PAYROLL EXAMINER Unavailable Unavailable Mcneil, L Aracelis PAYROLL EXAMINER Unavailable Unavailable Mcneil, L Aracelis PAYROLL EXAMINER Unavailable Unavailable Mcneil, L Aracelis PAYROLL EXAMINER Unavailable Unavailable Stacie, L Aracelis PAYROLL EXAMINER Unavailable Unavailable Stacie, L Aracelis PAYROLL EXAMINER Unavailable Unavailable Mcneil, L Aracelis PAYROLL EXAMINER Unavailable Unavailable Mcneil, L Aracelis PAYROLL EXAMINER Unavailable Unavailable Stacie, L Aracelis PAYROLL EXAMINER Unavailable Unavailable Mcneil, L Aracelis PAYROLL EXAMINER Unavailable Unavailable Mcneil, L Aracelis PAYROLL EXAMINER Unavailable Unavailable Stacie, L Aracelis PAYROLL EXAMINER Unavailable Unavailable Stacie, L Aracelis PAYROLL EXAMINER Unavailable Unavailable Stacie, L Aracelis PAYROLL EXAMINER Unavailable Unavailable Mcneil, L Aracelis PAYROLL EXAMINER Unavailable Unavailable Stacie, L Aracelis PAYROLL EXAMINER Unavailable Unavailable Stacie, L Aracelis PAYROLL EXAMINER Unavailable Unavailable Mcneil, L Aracelis PAYROLL EXAMINER Unavailable Unavailable Mcneil, L Aracelis PAYROLL EXAMINER Unavailable Unavailable Stacie, L Aracelis PAYROLL EXAMINER Unavailable Unavailable Re-disclosure Warning The records that you are about to access may contain information from federally-assisted alcohol or drug abuse programs. If such information is present, then the following federally mandated warning applies: This information has been disclosed to you from records protected by federal confidentiality rules (42 CFR part 2). The federal rules prohibit you from making any further disclosure of this information unless further disclosure is expressly permitted by the written consent of the person to whom it pertains or as otherwise permitted by 42 CFR part 2. A general authorization for the release of medical or other information is NOT sufficient for this purpose. The Federal rules restrict any use of the information to criminally investigate or prosecute any alcohol or drug abuse patient.The records that you are about to access may contain highly sensitive health information, the redisclosure of which is protected by Article 27-F of the [facility] Public Health law. If you continue you may have access to information: Regarding HIV / AIDS; Provided by facilities licensed or operated by the [facility] Office of Mental Health; or Provided by the [facility] Office for People With Developmental Disabilities. If such information is present, then the following [facility] mandated warning applies: This information has been disclosed to you from confidential records which are protected by state law. State law prohibits you from making any further disclosure of this information without the specific written consent of the person to whom it pertains, or as otherwise permitted by law. Any unauthorized further disclosure in violation of state law may result in a fine or [place] [facility] sentence or both. A general authorization for the release of medical or other information is NOT sufficient authorization for further disc losure. Family History Family Member Name Family Member Gender Family Member Status Date o f Status Description Data Source(s) Unknown Unknown Problem [facility] ([facility]) Encounters Encounter Providers Location Date Indications Data Source(s ) Outpatient Attender: ADA DAWSON MD Main Office 12/28/2019 02:15:00 PM EDT [facility] ([facility] [place] [address] [facility] [address] 10/07/2019 12:00:00 AM EDT eCW1 ([facility]) Outpatient Attender: ADA DAWSON MD Main Office 06/27/2019 09:30:00 AM EST [facility] ([facility] [address] [facility] [address] 06/09/2019 12:00:00 AM EST eCW1 ([facility]) Outpatient Attender: ADA DAWSON MD Main Office 05/30/2019 08:15:00 AM EST [facility] ([facility]) [address], [facility] [address] 05/27/2019 12:00:00 AM EST eCW1 ([facility]) Outpatient Attender: Aracelis GREENE Main Office 05/09/2019 12:00:0 0 PM EST [facility] ([facility]) Medications Medication Brand Name Start Date Product Form Dose Route Admi nistrative Instructions Pharmacy Instructions Status Indications Reaction Description Data Source(s) Therapeutic, Prophylactic Or Diagnostic Injection Subq/Im 06/07/2020 12:00:00 AM EST completed [facility] ([facility]) Medication administered onsite Xolair 06/07/2020 12:00:00 AM EST completed [facility] ([facility]) Medication administered onsite 5 mg 05/22/2020 12:00:00 AM EST tablet 30 TAKE ONE TABLET BY MOUTH EVERY MORNING TAKE ONE TABLET BY MOUTH EVERY MORNING SOLD: 05/23/2020 [facility] 25 mg 05/22/2020 12:00:00 AM EST tablet 150 TAKE TWO TABLETS BY MOUTH AT NOON AND THREE TABLETS AT BEDTIME TAKE TWO TABLETS BY MOUTH AT NOON AND TH REE TABLETS AT BEDTIME SOLD: 05/23/2020 [facility] Therapeutic, Prophylactic Or Diagnostic Injection Subq/Im 05/02/2020 12:00:00 AM EST completed [facility] ([facility]) Medication administered onsite Xolair 05/02/2020 12:00:00 AM EST completed [facility] ([facility]) Medication administered onsite Therapeutic, Prophylactic Or Diagnostic Injection Subq/Im 04/11/2020 12:00:00 AM EST completed [facility] ([facility]) Medication administered onsite Xolair 04/11/2020 12:00:00 AM EST completed [facility] ([facility]) Medication administered onsite Xolair 03/15/2020 12:00:00 AM EST completed [facility] ([facility]) Medication administered onsite Therapeutic, Prophylactic Or Diagnostic Injection Subq/Im 03/15/2020 12:00:00 AM EST completed [facility] ([facility]) Medication administered onsite Therapeutic, Prophylactic Or Diagnostic Injection Subq/Im 02/23/2020 12:00:00 AM EDT completed [facility] ([facility]) Medication administered onsite Xolair 02/23/2020 12:00:00 AM EDT completed [facility] ([facility]) Medication administered onsite Xolair 02/02/2020 12:00:00 AM EDT completed [facility] ([facility]) Medication administered onsite Therapeutic, Prophylactic Or Diagnostic Injection Subq/Im 02/02/2020 12:00:00 AM EDT completed [facility] ([facility]) Medication administered onsite Xolair 01/12/2020 12:00:00 AM EDT completed [facility] ([facility]) Medication administered onsite Therapeutic, Prophylactic Or Diagnostic Injection Subq/Im 01/12/2020 12:00:00 AM EDT completed [facility] ([facility]) Medication administered onsite Therapeutic, Prophylactic Or Diagnostic Injection Subq/Im 12/22/2019 12:00:00 AM EDT completed [facility] ([facility]) Medication administered onsite Xolair 12/22/2019 12:00:00 AM EDT completed [facility] ([facility]) Medication administered onsite Therapeutic, Prophylactic Or Diagnostic Injection Subq/Im 12/01/2019 12:00:00 AM EDT completed [facility] ([facility]) Medication administered onsite Xolair 12/01/2019 12:00:00 AM EDT completed [facility] ([facility]) Medication administered onsite Therapeutic, Prophylactic Or Diagnostic Injection Subq/Im 11/10/2019 12:00:00 AM EDT completed [facility] ([facility]) Medication administered onsite Xolair 11/10/2019 12:00:00 AM EDT completed [facility] ([facility]) Medication administered onsite levocetirizine dihydrochloride 5 MG Oral Tablet LEVOCETIRIZI NE DIHYDROCHLORIDE 11/08/2019 12:00:00 AM EDT tablet 30 TAKE ONE TABLE T BY MOUTH EVERY MORNING TAKE ONE TABLET BY MOUTH EVERY MORNING SOLD: 11/14/2019 [facility] Xolair 10/20/2019 12:00:00 AM EDT completed [facility] ([facility]) Medication administered onsite Therapeutic, Prophylactic Or Diagnostic Injection Subq/Im 10/20/2019 12:00:00 AM EDT completed [facility] ([facility]) Medication administered onsite 25 mcg 10/07/2019 12:00:00 AM EDT tablet 45 TAKE ONE TABLET BY MOUTH EVERY OTHER DAY IN THE MORNING ON AN EMPTY STOMACH TAKE ONE TABLET BY MOUTH EVERY OTHER DAY IN THE MORNING ON AN EMPTY STOMACH SOLD: 01/28/2020 [facility] Levothyroxine Sodium 0.025 MG Oral Tablet [Synthroid] Synthroid 25 MCG Synthroid 25 MCG 10/07/2019 12:00:00 AM EDT active [facility] 25 [facility]CG [facility] 25 mcg 10/07/2019 12:00:00 AM EDT tablet 45 TAKE ONE TABLET BY MOUTH EVERY OTHER DAY IN THE MORNING ON AN EMPTY STOMACH TAKE ONE TABLET BY MOUTH EVERY OTHER DAY IN THE MORNING ON AN EMPTY STOMACH SOLD: 10/07/2019 [facility] Vitamin D-[address] 25 MCG (1000 UT) Vitamin D-[address] 25 MCG (1000 UT) 10/07/2019 12:00:00 AM EDT 1.0 {tablet} active Vitamin D-[address] 25 MCG (1000 UT) [facility] 0.18/0.215/0.25 mg-35 mcg (28) 10/06/2019 12:00:00 AM EDT ta blet 28 TAKE ONE TABLET BY MOUTH EVERY DAY TAKE ONE TABLET BY MOUTH EVERY DAY SOLD: 10/07/2019 [facility] 0.18/0.215/0.25 mg-35 mcg (28) 10/06/2019 12:00:00 AM EDT ta blet 28 TAKE ONE TABLET BY MOUTH EVERY DAY TAKE ONE TABLET BY MOUTH EVERY DAY SOLD: 11/05/2019 [facility] 0.18/0.215/0.25 mg-35 mcg (28) 10/06/2019 12:00:00 AM EDT ta blet 28 TAKE ONE TABLET BY MOUTH EVERY DAY TAKE ONE TABLET BY MOUTH EVERY DAY SOLD: 01/28/2020 [facility] 0.18/0.215/0.25 mg-35 mcg (28) 10/06/2019 12:00:00 AM EDT ta blet 28 TAKE ONE TABLET BY MOUTH EVERY DAY TAKE ONE TABLET BY MOUTH EVERY DAY SOLD: 12/03/2019 [facility] 0.18/0.215/0.25 mg-35 mcg (28) 10/06/2019 12:00:00 AM EDT ta blet 28 TAKE ONE TABLET BY MOUTH EVERY DAY TAKE ONE TABLET BY MOUTH EVERY DAY SOLD: 12/31/2019 [facility] 0.18/0.215/0.25 mg-35 mcg (28) 10/06/2019 12:00:00 AM EDT ta blet 28 TAKE ONE TABLET BY MOUTH EVERY DAY TAKE ONE TABLET BY MOUTH EVERY DAY SOLD: 06/16/2020 [facility] 0.18/0.215/0.25 mg-35 mcg (28) 10/06/2019 12:00:00 AM EDT ta blet 28 TAKE ONE TABLET BY MOUTH EVERY DAY TAKE ONE TABLET BY MOUTH EVERY DAY SOLD: 04/20/2020 [facility] 0.18/0.215/0.25 mg-35 mcg (28) 10/06/2019 12:00:00 AM EDT ta blet 28 TAKE ONE TABLET BY MOUTH EVERY DAY TAKE ONE TABLET BY MOUTH EVERY DAY SOLD: 05/18/2020 [facility] 0.18/0.215/0.25 mg-35 mcg (28) 10/06/2019 12:00:00 AM EDT ta blet 28 TAKE ONE TABLET BY MOUTH EVERY DAY TAKE ONE TABLET BY MOUTH EVERY DAY SOLD: 03/24/2020 [facility] 0.18/0.215/0.25 mg-35 mcg (28) 10/06/2019 12:00:00 AM EDT ta blet 28 TAKE ONE TABLET BY MOUTH EVERY DAY TAKE ONE TABLET BY MOUTH EVERY DAY SOLD: 02/24/2020 [facility] Xolair 09/30/2019 12:00:00 AM EDT completed [facility] ([facility]) Medication administered onsite Therapeutic, Prophylactic Or Diagnostic Injection Subq/Im 09/30/2019 12:00:00 AM EDT completed [facility] ([facility]) Medication administered onsite Xolair Xolair 09/07/2019 12:00:00 AM EDT SUBCUTANEOUS a ctive [facility] ([facility]) Xolair 09/06/2019 12:00:00 AM EDT completed [facility] ([facility]) Medication administered onsite Therapeutic, Prophylactic Or Diagnostic Injection Subq/Im 09/06/2019 12:00:00 AM EDT completed [facility] ([facility]) Medication administered onsite Therapeutic, Prophylactic Or Diagnostic Injection Subq/Im 08/16/2019 12:00:00 AM EDT completed [facility] ([facility]) Medication administered onsite Xolair 08/16/2019 12:00:00 AM EDT completed [facility] ([facility]) Medication administered onsite levocetirizine dihydrochloride 5 MG Oral Tablet LEVOCETIRIZI NE DIHYDROCHLORIDE 07/25/2019 12:00:00 AM EDT tablet 30 TAKE ONE TABLE T BY MOUTH EVERY MORNING TAKE ONE TABLET BY MOUTH EVERY MORNING SOLD: 07/27/2019 [facility] levocetirizine dihydrochloride 5 MG Oral Tablet LEVOCETIRIZI NE DIHYDROCHLORIDE 07/25/2019 12:00:00 AM EDT tablet 30 TAKE ONE TABLE T BY MOUTH EVERY MORNING TAKE ONE TABLET BY MOUTH EVERY MORNING SOLD: 10/05/2019 [facility] levocetirizine dihydrochloride 5 MG Oral Tablet LEVOCETIRIZI NE DIHYDROCHLORIDE 07/25/2019 12:00:00 AM EDT tablet 30 TAKE ONE TABLE T BY MOUTH EVERY MORNING TAKE ONE TABLET BY MOUTH EVERY MORNING SOLD: 09/01/2019 [facility] Therapeutic, Prophylactic Or Diagnostic Injection Subq/Im 07/22/2019 12:00:00 AM EDT completed [facility] ([facility]) Medication administered onsite Xolair 07/22/2019 12:00:00 AM EDT completed [facility] ([facility]) Medication administered onsite Xolair 06/27/2019 12:00:00 AM EST completed [facility] ([facility]) Medication administered onsite Therapeutic, Prophylactic Or Diagnostic Injection Subq/Im 06/27/2019 12:00:00 AM EST completed [facility] ([facility]) Medication administered onsite Therapeutic, Prophylactic Or Diagnostic Injection Subq/Im 05/30/2019 12:00:00 AM EST completed [facility] ([facility]) Medication administered onsite Xolair 150 MG 05/30/2019 12:00:00 AM EST comp leted [facility] ([facility]) Medication administered onsite Chemotherpy Admin Subcutaneous/Im Non-Hormonal Anti-Neoplast ic 05/30/2019 12:00:00 AM EST completed [facility] ([facility]) Medication administered onsite 0.3 mg/0.3 mL 05/30/2019 12:00:00 AM EST auto-injector 2 INJECT 0.3MLS INTRAMUSCULARLY ONCE NEEDED FOR ANAPHYLAXIS INJECT 0.3MLS INTRAMUSCULARLY ONCE NEEDED FOR ANAPHYLAXIS SOLD: 05/31/2019 [facility] Chemotherpy Admin Subcutaneous/Im Non-Hormonal Anti-Neoplast ic 05/09/2019 12:00:00 AM EST completed [facility] ([facility]) Medication administered onsite Xolair 150 MG 05/09/2019 12:00:00 AM EST comp leted [facility] ([facility]) Medication administered onsite Therapeutic, Prophylactic Or Diagnostic Injection Subq/Im 05/09/2019 12:00:00 AM EST completed [facility] ([facility]) Medication administered onsite Xolair 150 MG 05/09/2019 12:00:00 AM EST comp leted [facility] ([facility]) Medication administered onsite levocetirizine dihydrochloride 5 MG Oral Tablet LEVOCETIRIZI NE DIHYDROCHLORIDE 01/06/2019 12:00:00 AM EDT tablet 30 TAKE ONE TABLE T BY MOUTH EVERY MORNING TAKE ONE TABLET BY MOUTH EVERY MORNING SOLD: 06/25/2019 [facility] levocetirizine dihydrochloride 5 MG Oral Tablet LEVOCETIRIZI NE DIHYDROCHLORIDE 01/06/2019 12:00:00 AM EDT tablet 30 TAKE ONE TABLE T BY MOUTH EVERY MORNING TAKE ONE TABLET BY MOUTH EVERY MORNING SOLD: 05/16/2019 [facility] Xolair 150 mg/mL subcutaneous syringe 1 ML omalizumab 150 MG/ML Prefilled Syringe 12/02/2018 09:14:33 AM EDT 2 milliliters complet ed Xolair [facility] ([facility]) 0.18/0.215/0.25 mg-35 mcg (28) 11/02/2018 12:00:00 AM EDT ta blet 28 TAKE ONE TABLET BY MOUTH EVERY DAY TAKE ONE TABLET BY MOUTH EVERY DAY SOLD: 06/18/2019 [facility] 0.18/0.215/0.25 mg-35 mcg (28) 11/02/2018 12:00:00 AM EDT ta blet 28 TAKE ONE TABLET BY MOUTH EVERY DAY TAKE ONE TABLET BY MOUTH EVERY DAY SOLD: 07/15/2019 [facility] 0.18/0.215/0.25 mg-35 mcg (28) 11/02/2018 12:00:00 AM EDT ta blet 28 TAKE ONE TABLET BY MOUTH EVERY DAY TAKE ONE TABLET BY MOUTH EVERY DAY SOLD: 08/13/2019 [facility] 0.18/0.215/0.25 mg-35 mcg (28) 11/02/2018 12:00:00 AM EDT ta blet 28 TAKE ONE TABLET BY MOUTH EVERY DAY TAKE ONE TABLET BY MOUTH EVERY DAY SOLD: 09/10/2019 [facility] 0.18/0.215/0.25 mg-35 mcg (28) 11/02/2018 12:00:00 AM EDT ta blet 28 TAKE ONE TABLET BY MOUTH EVERY DAY TAKE ONE TABLET BY MOUTH EVERY DAY SOLD: 05/20/2019 [facility] Water 1000 MG/ML Injectable Solution patito er for injection, sterile injection solution water for injection, sterile injection solution 2018 09:15:42 AM EDT 0 milliliter completed water fo r injection, sterile [facility] ([facility] Insurance Providers Payer name Policy type / Coverage type Policy ID Covered libertarian ID Covered libertarian's relationship to clark Policy Clark Plan Information [facility] PLAN [facility] [id number] [facility] [id number] Preferred Provider Organization (PPO) [id number] ANSI-Medicaid [id number] ANSI-Medicaid [id number] ANSI-Medicaid [id number] ANSI-Medicaid [id number] [facility] Community Plan Commercial Self AMERICHOICE UNHC XIX HMO -I/P [id number] 18 [id number] UNHC AMERICHOICE XIX -HMO [id number] 18 [id number] [facility] P [id number] S [id number] [employer] [place] P [id number] S [id number] [employer] [place] [id number] [facility] MEDICAID [facility] HMO [id number] S [id number] Problems, Conditions, and Diagnoses Code Display Name Description Problem Type Effective Dates Data Source(s) E78.5 Dyslipidemia Dyslipidemia Problem 06/09/2019 12:00:00 A M EST [facility] E78.5 Dyslipidemia Dyslipidemia Problem 06/09/2019 12:00:00 A M EST [facility]CW[facility]) Surgeries/Procedures Procedure Description Date Indications Data Source(s) THERAPEUTIC PROPHYLACTIC/DX INJECTION SUBQ/IM 06/07/19 21 12:00:00 AM EST [facility] ([facility]) THERAPEUTIC PROPHYLACTIC/DX INJECTION SUBQ/IM 05/02/20 20 12:00:00 AM EST [facility] ([facility]) THERAPEUTIC PROPHYLACTIC/DX INJECTION SUBQ/IM 04/11/20 20 12:00:00 AM EST [facility] ([facility]) THERAPEUTIC PROPHYLACTIC/DX INJECTION SUBQ/IM 03/15/20 20 12:00:00 AM EST [facility] ([facility]) THERAPEUTIC PROPHYLACTIC/DX INJECTION SUBQ/IM 02/23/20 20 12:00:00 AM EDT [facility] ([facility]) THERAPEUTIC PROPHYLACTIC/DX INJECTION SUBQ/IM 02/02/20 20 12:00:00 AM EDT [facility] ([facility]) THERAPEUTIC PROPHYLACTIC/DX INJECTION SUBQ/IM 01/12/20 20 12:00:00 AM EDT [facility] ([facility]) THERAPEUTIC PROPHYLACTIC/DX INJECTION SUBQ/IM 12/22/19 20 12:00:00 AM EDT [facility] ([facility]) THERAPEUTIC PROPHYLACTIC/DX INJECTION SUBQ/IM 12/01/19 20 12:00:00 AM EDT [facility] ([facility]) THERAPEUTIC PROPHYLACTIC/DX INJECTION SUBQ/IM 11/10/19 20 12:00:00 AM EDT [facility] ([facility]) THERAPEUTIC PROPHYLACTIC/DX INJECTION SUBQ/IM 10/20/19 20 12:00:00 AM EDT [facility] ([facility]) THERAPEUTIC PROPHYLACTIC/DX INJECTION SUBQ/IM 09/30/19 20 12:00:00 AM EDT [facility] ([facility]) THERAPEUTIC PROPHYLACTIC/DX INJECTION SUBQ/IM 09/06/19 20 12:00:00 AM EDT [facility] ([facility]) THERAPEUTIC PROPHYLACTIC/DX INJECTION SUBQ/IM 08/16/19 20 12:00:00 AM EDT [facility] ([facility]) THERAPEUTIC PROPHYLACTIC/DX INJECTION SUBQ/IM 07/22/19 20 12:00:00 AM EDT [facility] ([facility]) THERAPEUTIC PROPHYLACTIC/DX INJECTION SUBQ/IM 06/27/19 20 12:00:00 AM EST [facility] ([facility]) THERAPEUTIC PROPHYLACTIC/DX INJECTION SUBQ/IM 05/30/19 20 12:00:00 AM EST [facility] ([facility]) CHEMOTX ADMN SUBQ/IM NON-HORMONAL ANTI-ANN 05/30/2019 12:00:00 AM EST [facility] ([facility]) THERAPEUTIC PROPHYLACTIC/DX INJECTION SUBQ/IM 05/09/20 19 12:00:00 AM EST [facility] ([facility]) CHEMOTX ADMN SUBQ/IM NON-HORMONAL ANTI-ANN 05/09/2019 12:00:00 AM EST [facility] ([facility]) Results ID Date Data Source [id number] 01/03/2020 10:46:00 AM EDT [facility] ([facility]) Name Value Range Interpretation Code Description Data Anabell rce(s) Supporting Document(s) Laboratory test finding (navigational concept) 5.9 10 4 .0-10.0 Normal (applies to non-numeric results) [facility] ([facility]) Laboratory test finding (navigational concept) 3.85 10 4 .00-5.40 Below low normal [facility] ([facility] ) Laboratory test finding (navigational concept) 12.0 g/dL 1 2.0-15.5 Normal (applies to non-numeric results) [facility] Laboratory test finding (navigational concept) 36.4 % 3 6.0-47.0 Normal (applies to non-numeric results) [facility] ([facility]) Laboratory test finding (navigational concept) 31.2 pg 2 7.0-33.0 Normal (applies to non-numeric results) [facility] Laboratory test finding (navigational concept) 94.5 fl 8 0.0-96.0 Normal (applies to non-numeric results) [facility] Laboratory test finding (navigational concept) 33.0 g/dL 3 2.0-36.5 Normal (applies to non-numeric results) [facility] Laboratory test finding (navigational concept) 270 10 1 50-450 Normal (applies to non-numeric results) [facility] Laboratory test finding (navigational concept) 11.9 % 1 1.5-14.5 Normal (applies to non-numeric results) [facility] ([facility]) Laboratory test finding (navigational concept) 37.0 % 2 4.0-44.0 Normal (applies to non-numeric results) [facility] ([facility]) Laboratory test finding (navigational concept) 10.4 % 0.0-5.0 Above high normal [facility] ([facility]) Laboratory test finding (navigational concept) 48.4 % 3 6.0-66.0 Normal (applies to non-numeric results) [facility] ([facility]) Laboratory test finding (navigational concept) 3.4 % 0.0-3.0 Above high normal [facility] ([facility]) Laboratory test finding (navigational concept) 0.5 % 0 .0-1.0 Normal (applies to non-numeric results) [facility] Laboratory test finding (navigational concept) 0.3 % 0 -3.0 Normal (applies to non-numeric results) [facility] Laboratory test finding (navigational concept) 2.8 10 1 .5-8.5 Normal (applies to non-numeric results) [facility] ([facility]) Laboratory test finding (navigational concept) 0.0 % 0 -0 Normal (applies to non- numeric results) [facility] ([facility] ) Laboratory test finding (navigational concept) 0.6 10 0 .0-0.8 Normal (applies to non-numeric results) [facility] ([facility]) Laboratory test finding (navigational concept) 2.2 10 1 .5-5.0 Normal (applies to non-numeric results) [facility] ([facility]) Laboratory test finding (navigational concept) 0.2 10 0 .0-0.5 Normal (applies to non-numeric results) [facility] ([facility]) Laboratory test finding (navigational concept) 0.0 10 0 .0-0.2 Normal (applies to non-numeric results) [facility] ([facility]) ID Date Data Source [id number] 01/03/2020 10:46:00 AM EDT [facility] ([facility]) Name Value Range Interpretation Code Description Data Anabell rce(s) Supporting Document(s) Laboratory test finding (navigational concept) 11 mg/dL 7 -18 Normal (applies to non-numeric results) [facility] Laboratory test finding (navigational concept) 97 mg/dL 7 0-100 Normal (applies to non-numeric results) [facility] ([facility]) Laboratory test finding (navigational concept) 0.81 mg/dL 0 .55-1.30 Normal (applies to non-numeric results) [facility] [place] Laboratory test finding (navigational concept) 140 meq/L 1 36-145 Normal (applies to non-numeric results) [facility] [place] Laboratory test finding (navigational concept) Laboratory test r esult Normal (applies to non-numeric results) [facility]) <content>Units are mL/min/1.73 m2</content>
<content></content>
<content>Chronic Kidney Disease Staging per NKF:</content>
<content></content>
<content>Stage I & II GFR >=60 Normal to Mildly Decreased</content>
<content>Stage III GFR 30- 59 Moderately Decreased</content>
<content>Stage IV GFR 15-29 Severely Decreased</content>
<content>Stage V GFR <15 Very Little GFR Left</content>
<content>ESRD GFR <15 on KNIFE BLADE POLISHER</content>
<content></content> Laboratory test finding (navigational concept) 4.0 meq/L 3 .5-5.1 Normal (applies to non-numeric results) [facility] [place] Laboratory test finding (navigational concept) 107 meq/L 9 8-107 Normal (applies to non-numeric results) [facility] Laboratory test finding (navigational concept) 27 meq/L 2 1-32 Normal (applies to non-numeric results) [facility] [place] Laboratory test finding (navigational concept) 6 meq/L 8-16 Below low normal [facility] ([facility]) Laboratory test finding (navigational concept) 12 U/L 7 -37 Normal (applies to non-numeric results) [facility] [place] Laboratory test finding (navigational concept) 9.2 mg/dL 8 .5-10.1 Normal (applies to non-numeric results) [facility] Laboratory test finding (navigational concept) 53 U/L 4 5-117 Normal (applies to non-numeric results) [facility] Laboratory test finding (navigational concept) 0.4 mg/dL 0 .2-1.0 Normal (applies to non-numeric results) [facility] [place] Laboratory test finding (navigational concept) 22 U/L 1 2-78 Normal (applies to non-numeric results) [facility] [place] Laboratory test finding (navigational concept) 3.4 GM/DL 3 .2-5.2 Normal (applies to non-numeric results) [facility] [place] Laboratory test finding (navigational concept) 7.1 GM/DL 6 .4-8.2 Normal (applies to non-numeric results) [facility] [place] Laboratory test finding (navigational concept) 0.9 1.2-2.2 Below low normal [facility] ([facility]) Procedure Social History Code Duration Value Status Description Data Source(s ) Smoking 12/28/2019 12:00:00 AM EDT - 05/11/2017 12:00:00 AM EST Patient is a former smoker completed Patient is a former smoker [facility] ([facility]) Smoking 10/07/2019 12:00:00 AM EDT Never Smoker completed [facility] Vital Signs ID Date Data Source UNK Name Value Range Interpretation Code Description Data Source(s) Body mass index (BMI) [Ratio] 42.8 kg/m2 42.8 k g/m2 [facility] ([facility]) Diastolic blood pressure 80 mm[Hg] 80 mm[Hg] [facility] Systolic blood pressure 137 mm[Hg] 137 mm[Hg] M [facility]ENT ([facility]) Respiratory rate 16 /min 16 /min [facility] ( [facility]) Heart rate 80 /min 80 /min [facility] Body height 65 [in_i] 65 [in_i] [facility] 5'5" Body weight 257.12 [lb_av] 257.12 [lb_av] [facility] Diastolic blood pressure 85 mm[Hg] 85 mm[Hg] [facility] Systolic blood pressure 131 mm[Hg] 131 mm[Hg] e CW1 ([facility] Body temperature 97.8 [degF] 97.8 [degF] [facility] Respiratory rate 20 /min 20 /min eCW1 ([facility]) Heart rate 72 /min 72 /min eCW1 [facility] Body mass index (BMI) [Ratio] 40.83 kg/m2 40.83 kg/m2 [facility]CW[facility] Body height [in_i] eCW1 ([facility]) Body weight 253 [lb_av] 253 [lb_av] eCW1 ([facility]) Body mass index (BMI) [Ratio] 41.4 kg/m2 41.4 k g/m2 [facility] ([facility] Diastolic blood pressure 81 mm[Hg] 81 mm[Hg] [facility] Systolic blood pressure 131 mm[Hg] 131 mm[Hg] M [facility] ([facility] Respiratory rate 16 /min 16 /min [facility] ( [facility] Heart rate 75 /min 75 /min [facility] [place] Body height 65 [in_i] 65 [in_i] [facility] 5'5" Body weight 249.00 [lb_av] 249.00 [lb_av] [facility] T ([facility] Body mass index (BMI) [Ratio] 41.8 kg/m2 41.8 k g/m2 [facility] ([facility] Diastolic blood pressure 81 mm[Hg] 81 mm[Hg] [facility] States this is not uncommon Systolic blood pressure 141 mm[Hg] 141 mm[Hg] M [facility] ([facility] States this is not uncommon Respiratory rate 16 /min 16 /min [facility] ( [facility] Heart rate 79 /min 79 /min [facility] Body height 65 [in_i] 65 [in_i] [facility] 5'5" Body weight 251.38 [lb_av] 251.38 [lb_av] [facility] T ([facility] Body mass index (BMI) [Ratio] 41.2 kg/m2 41.2 k g/m2 [facility] ([facility] Diastolic blood pressure 76 mm[Hg] 76 mm[Hg] [facility] Systolic blood pressure 137 mm[Hg] 137 mm[Hg] M [facility] ([facility] Respiratory rate 18 /min 18 /min [facility] ( [facility] Heart rate 85 /min 85 /min [facility] Body height 65 [in_i] 65 [in_i] [facility] 5'5" Body weight 247.38 [lb_av] 247.38 [lb_av] [facility] T ([facility]) Body mass index (BMI) [Ratio] 41.8 kg/m2 41.8 k g/m2 [facility] Diastolic blood pressure 81 mm[Hg] 81 mm[Hg] [facility] Systolic blood pressure 143 mm[Hg] 143 mm[Hg] M [facility] ([facility]) Respiratory rate 16 /min 16 /min [facility] ( [facility]) Heart rate 87 /min 87 /min [facility] Body height 65 [in_i] 65 [in_i] [facility] 5'5" Body weight 251.00 [lb_av] 251.00 [lb_av] [facility] T ([facility] Patient Treatment Plan of Care Planned Activity Planned Date Details Description Data Source (s) Vitamin D-[address] 25 MCG (1000 UT) 10/07/2019 12:00:00 AM EDT [facility] Levothyroxine Sodium 0.025 MG Oral Tablet [Synthroid] 10/07/2019 12:00:00 AM EDT eCW1 ([facility]) Xolair 150 mg/mL subcutaneous syringe 12/02/2018 09:14:33 AM EDT [facility] ([facility]) Water 1000 MG/ML Injectable Solution 08/17/2018 09:15:42 AM EDT [facility] ([facility])
--- OUTSIDE RECORDS SUMMARY | 2020-06-24 06:52 | CCD | Continuity of Care Document ---
Author Author Ramya LACKEY M.D. Organization Unknown Address [address], [place] [address] Phone [phone] Care Team Providers Care Set Up Mechanic Automatic Line Name Role Phone Marleny Valdovinos NP AUTM [...] 05/30/2019 Xolair 150 MG Injection Aracelis Quinones HAND SAMPLE MAKER-C 05/09/2019 Xolair 150 MG Injection LETI BethP-C 05/09/2019 Chemotherpy Admin Subcutaneous/Im Non-Ho rmonal Anti-Neoplastic Injection Aracelis shafer HAND SAMPLE MAKER-C 05/09/2019 Therapeutic, Prophylactic Or Diagnostic Injection Subq/Im [...] Therapeutic, Prophylactic Or Diagnostic Injection Subq/Im Injection Trisitn lopez M.D. 01/21/2019 Xolair 150 MG Injection [...] 36.0-66.0 Lymph % 37.0 % Normal 24.0-44.0 Pierce % 10.4 % High 0.0-5.0 Eos % 3.4 % High 0.0-3.0 Baso % 0.5 % Normal 0.0-1.0 Immature Granulocyte % 0.3 % Normal 0-3.0 Nucleated Red Blood Cell % 0.0 % Normal 0-0 Neutrophils # 2.8 10 Normal 1.5-8.5 Lymph # 2.2 10 Normal 1.5-5.0 Pierce # 0.6 10 Normal 0.0-0.8 Eos # 0.2 10 Normal 0.0-0.5 Baso # 0.0 10 Normal 0.0-0.2 1 Units are mL/min/1.73 m2 Chronic Kidney Disease Staging per NKF: Stage I & II GFR >=60 Normal to Mildly Decreased Stage III GFR 30-59 Moderately Decreased Stage IV GFR 15-29 Severely Decreased Stage V GFR <15 Very Little GFR Left ESRD GFR <15 on FEATHER RENOVATOR Procedures Date Code Description Status 04/11/2020 66190 Therapeutic, Prophylactic Or Priya gnostic Injection Subq/Im Completed 03/15/2020 [id number] Therapeutic, Prophylactic Or Priya gnostic Injection Subq/Im Completed 02/23/2020 69653 Therapeutic, Prophylactic Or Priya gnostic Injection Subq/Im Completed 02/02/2020 21311 Therapeutic, Prophylactic Or Priya gnostic Injection Subq/Im Completed 01/12/2020 15074 Therapeutic, Prophylactic Or Priya gnostic Injection Subq/Im Completed 12/22/2019 64881 Therapeutic, Prophylactic Or Priya gnostic Injection Subq/Im Completed 12/01/2019 69175 Therapeutic, Prophylactic Or Priya gnostic Injection Subq/Im Completed 11/10/2019 82001 Therapeutic, Prophylactic Or Priya gnostic Injection Subq/Im Completed 10/20/2019 [id number] Therapeutic, Prophylactic Or Priya gnostic Injection Subq/Im [...]
--- OUTSIDE RECORDS SUMMARY | 2020-06-24 06:52 | CCD | Continuity of Care Document ---
Author Author Ramya LACKEY M.D. Organization Unknown Address [address], [address] [place] [address] Phone [phone] Care Team Providers Care Microsoft Systems Engineer Name Role Phone Marleny Valdovinos NP AUTM [...] 05/30/2019 Xolair 150 MG Injection Aracelis Quinones SPECIAL SERVICES DIRECTOR-C 05/09/2019 Xolair 150 MG Injection LETI BethP-C 05/09/2019 Chemotherpy Admin Subcutaneous/Im Non-Ho rmonal Anti-Neoplastic Injection Aracelis shafer SPECIAL SERVICES DIRECTOR-C 05/09/2019 Therapeutic, Prophylactic Or Diagnostic Injection Subq/Im [...] H/L Range Note Comprehensive Metabolic Profil 01/03/2020 [facility] Glucose, Fasting 97 mg/dL Normal 70-100 Blood [...] 0.9 Low 1.2-2.2 CBC With Differential 01/03/2020 [facility] White Blood Count 5.9 10 Normal 4.0-10.0 [...] 36.0-66.0 Lymph % 37.0 % Normal 24.0-44.0 [place] % 10.4 % High 0.0-5.0 Eos % 3.4 % High 0.0-3.0 Baso % 0.5 % Normal 0.0-1.0 Immature Granulocyte % 0.3 % Normal 0-3.0 Nucleated Red Blood Cell % 0.0 % Normal 0-0 Neutrophils # 2.8 10 Normal 1.5-8.5 Lymph # 2.2 10 Normal 1.5-5.0 [place] # 0.6 10 Normal 0.0-0.8 Eos # 0.2 10 Normal 0.0-0.5 Baso # 0.0 10 Normal 0.0-0.2 1 Units are mL/min/1.73 m2 Chronic Kidney Disease Staging per NKF: Stage I & II GFR >=60 Normal to Mildly Decreased Stage III GFR 30-59 Moderately Decreased Stage IV GFR 15-29 Severely Decreased Stage V GFR <15 Very Little GFR Left ESRD GFR <15 on SIXTH GRADE TEACHER Procedures Date Code Description Status 04/11/2020 [id number] Therapeutic, Prophylactic Or Priya gnostic Injection Subq/Im Completed 03/15/2020 51559 Therapeutic, Prophylactic Or Priya gnostic Injection Subq/Im Completed 02/23/2020 16141 Therapeutic, Prophylactic Or Priya gnostic Injection Subq/Im Completed 02/02/2020 88977 Therapeutic, Prophylactic Or Priya gnostic Injection Subq/Im Completed 01/12/2020 13880 Therapeutic, Prophylactic Or Priya gnostic Injection Subq/Im Completed 12/22/2019 11344 Therapeutic, Prophylactic Or Priya gnostic Injection Subq/Im Completed 12/01/2019 88829 Therapeutic, Prophylactic Or Priya gnostic Injection Subq/Im Completed 11/10/2019 22808 Therapeutic, Prophylactic Or Priya gnostic Injection Subq/Im Completed 10/20/2019 02306 Therapeutic, Prophylactic Or Priya gnostic Injection Subq/Im [...]
--- OUTSIDE RECORDS SUMMARY | 2020-06-24 06:52 | CCD | Continuity of Care Document ---
Author Author Ramya LACKEY M.D. Organization Unknown Address [address], [address], [place] [address] Phone [phone] Care Team Providers Care Epoxy Specialist Name Role Phone Marleny Valdovinos NP AUTM [...] 05/30/2019 Xolair 150 MG Injection Aracelis Stacie DUSTLESS OPERATOR-C 05/09/2019 Xolair 150 MG Injection Aracelisjhon Quinones DUSTLESS OPERATOR-C 05/09/2019 Chemotherpy Admin Subcutaneous/Im Non-Ho rmonal Anti-Neoplastic Injection Aracelis Mc shafer DUSTLESS OPERATOR-C 05/09/2019 Therapeutic, Prophylactic Or Diagnostic Injection Subq/Im Injection Aracelisjhon Quinones DUSTLESS OPERATOR-C 05/09/2019 Xolair 150 MG Injection Tristin Lackey [...] H/L Range Note Comprehensive Metabolic Profil 01/03/2020 [facility] Glucose, Fasting 97 mg/dL Normal [...] 0.9 Low 1.2-2.2 CBC With Differential 01/03/2020 [facility] White Blood Count 5.9 10 [...] 36.0-66.0 Lymph % 37.0 % Normal 24.0-44.0 [place] % 10.4 % High 0.0-5.0 Eos % 3.4 % High 0.0-3.0 Baso % 0.5 % Normal 0.0-1.0 Immature Granulocyte % 0.3 % Normal 0-3.0 Nucleated Red Blood Cell % 0.0 % Normal 0-0 Neutrophils # 2.8 10 Normal 1.5-8.5 Lymph # 2.2 10 Normal 1.5-5.0 Wheeler # 0.6 10 Normal 0.0-0.8 Eos # 0.2 10 Normal 0.0-0.5 Baso # 0.0 10 Normal 0.0-0.2 1 Units are mL/min/1.73 m2 Chronic Kidney Disease Staging per NKF: Stage I & II GFR >=60 Normal to Mildly Decreased Stage III GFR 30-59 Moderately Decreased Stage IV GFR 15-29 Severely Decreased Stage V GFR <15 Very Little GFR Left ESRD GFR <15 on MUMPS DEVELOPER Procedures Date Code Description Status 05/02/2020 [id number] Therapeutic, Prophylactic Or Priya gnostic Injection Subq/Im Completed 04/11/2020 66657 Therapeutic, Prophylactic Or Priya gnostic Injection Subq/Im Completed 03/15/2020 11694 Therapeutic, Prophylactic Or Priya gnostic Injection Subq/Im Completed 02/23/2020 73063 Therapeutic, Prophylactic Or Priya gnostic Injection Subq/Im Completed 02/02/2020 78885 Therapeutic, Prophylactic Or Priya gnostic Injection Subq/Im Completed 01/12/2020 10906 Therapeutic, Prophylactic Or Priya gnostic Injection Subq/Im Completed 12/22/2019 11846 Therapeutic, Prophylactic Or Priya gnostic Injection Subq/Im Completed 12/01/2019 99993 Therapeutic, Prophylactic Or Priya gnostic Injection Subq/Im Completed 11/10/2019 78020 Therapeutic, Prophylactic Or Priya gnostic Injection Subq/Im [...]
[2020-06-24] MEDS ORDERED: DERMABOND TOPICAL SKIN ADHESIVE TOP ONE (07:30)
--- OUTSIDE RECORDS SUMMARY | 2020-06-24 07:44 | CCD ---
Author Author [facility] Organization [facility] Address Unknown Phone Unavailable Care Team Providers Care Associate Music Professor Name Role Phone ADA DAWSON MD Unavailable [...] ADA DAWSON MD Unavailable Unavailable CHROSTOWSKI, ADA MD Unavailable [...] CHROSTOWSKI, ADA MD Unavailable Unavailable Stacie, L Araeclis GEOSCIENCES ASSOCIATE PROFESSOR Unavailable Unavailable Speculator, L Aracelis GEOSCIENCES ASSOCIATE PROFESSOR Unavailable Unavailable Speculator, L Aracelis GEOSCIENCES ASSOCIATE PROFESSOR Unavailable Unavailable Speculator, L Aracelis GEOSCIENCES ASSOCIATE PROFESSOR Unavailable Unavailable Stacie, L Aracelis GEOSCIENCES ASSOCIATE PROFESSOR Unavailable Unavailable Speculator, L Aracelis GEOSCIENCES ASSOCIATE PROFESSOR Unavailable Unavailable Speculator, L Aracelis GEOSCIENCES ASSOCIATE PROFESSOR Unavailable Unavailable Speculator, L Aracelis GEOSCIENCES ASSOCIATE PROFESSOR Unavailable Unavailable Stacie, L Aracelis GEOSCIENCES ASSOCIATE PROFESSOR Unavailable Unavailable Speculator, L Aracelis GEOSCIENCES ASSOCIATE PROFESSOR Unavailable Unavailable Stacie, L Aracelis GEOSCIENCES ASSOCIATE PROFESSOR Unavailable Unavailable Stacie, L Aracelis GEOSCIENCES ASSOCIATE PROFESSOR Unavailable Unavailable Stacie, L Aracelis GEOSCIENCES ASSOCIATE PROFESSOR Unavailable Unavailable Stacie, L Aracelis GEOSCIENCES ASSOCIATE PROFESSOR Unavailable Unavailable Speculator, L Aracelis GEOSCIENCES ASSOCIATE PROFESSOR Unavailable Unavailable Stacie, L Aracelis GEOSCIENCES ASSOCIATE PROFESSOR Unavailable Unavailable Stacie, L Aracelis GEOSCIENCES ASSOCIATE PROFESSOR Unavailable Unavailable Stacie, L Aracelis GEOSCIENCES ASSOCIATE PROFESSOR Unavailable Unavailable Speculator, L Aracelis GEOSCIENCES ASSOCIATE PROFESSOR Unavailable Unavailable Stacie, L Aracelis GEOSCIENCES ASSOCIATE PROFESSOR Unavailable Unavailable Speculator, L Aracelis GEOSCIENCES ASSOCIATE PROFESSOR Unavailable Unavailable Stacie, L Aracelis GEOSCIENCES ASSOCIATE PROFESSOR Unavailable Unavailable Speculator, L Aracelis GEOSCIENCES ASSOCIATE PROFESSOR Unavailable Unavailable Stacie, L Aracelis GEOSCIENCES ASSOCIATE PROFESSOR Unavailable Unavailable Stacie, L Aracelis GEOSCIENCES ASSOCIATE PROFESSOR Unavailable Unavailable Stacie, L Aracelis GEOSCIENCES ASSOCIATE PROFESSOR Unavailable Unavailable Speculator, L Aracelis GEOSCIENCES ASSOCIATE PROFESSOR Unavailable Unavailable Speculator, L Aracelis GEOSCIENCES ASSOCIATE PROFESSOR Unavailable Unavailable Stacie, L Aracelis GEOSCIENCES ASSOCIATE PROFESSOR Unavailable Unavailable Speculator, L Aracelis GEOSCIENCES ASSOCIATE PROFESSOR Unavailable Unavailable Stacie, L Aracelis GEOSCIENCES ASSOCIATE PROFESSOR Unavailable Unavailable Speculator, L Aracelis GEOSCIENCES ASSOCIATE PROFESSOR Unavailable Unavailable Speculator, L Aracelis GEOSCIENCES ASSOCIATE PROFESSOR Unavailable Unavailable Re-disclosure Warning The records that [...] is protected by Article 27-F of the [facility] Public Health law. If you continue you may have access to information: Regarding HIV / AIDS; Provided by facilities licensed or operated by the [facility] Office of Mental Health; or Provided by the [facility] Office for People With Developmental Disabilities. If such information is present, then the following [facility] mandated warning applies: This information has been [...] law may result in a fine or long term sentence or both. A general authorization for [...] [facility] [place] [place] [address] [facility] [facility] [address] 10/07/2019 12:00:00 AM EDT eCW1 (On license of [facility]) Outpatient Attender: ADA DAWSON MD Main Office 06/27/2019 09:30:00 AM EST [facility] ([facility] [place] [address] [facility] [address] 06/09/2019 12:00:00 AM EST eCW1 (On license of [facility]) Outpatient Attender: ADA DAWSON MD Main Office 05/30/2019 08:15:00 AM EST [facility] ([facility] [place] [address] [address] 05/27/2019 12:00:00 AM EST eCW1 (On license of [facility]) Outpatient Attender: Aracelis GREENE Main Office 05/09/2019 [...] TABLET BY MOUTH EVERY MORNING SOLD: 11/14/2019 [facility] Xolair 10/20/2019 12:00:00 AM EDT completed [...] MORNING ON AN EMPTY STOMACH SOLD: 01/28/2020 [facility] Levothyroxine Sodium 0.025 MG Oral Tablet [Synthroid] Synthroid 25 MCG Synthroid 25 MCG 10/07/2019 12:00:00 AM EDT active Synthroid 25 MCG eCW1 ([facility]) 25 mcg 10/07/2019 12:00:00 AM EDT tablet 45 TAKE ONE TABLET BY MOUTH EVERY OTHER DAY IN THE MORNING ON AN EMPTY STOMACH TAKE ONE TABLET BY MOUTH EVERY OTHER DAY IN THE MORNING ON AN EMPTY STOMACH SOLD: 10/07/2019 [facility] Vitamin D-[address] 25 MCG (1000 UT) Vitamin D-[address] 25 MCG (1000 UT) 10/07/2019 12:00:00 AM EDT 1.0 {tablet} active Vitamin D-[address] 25 MCG (1000 UT) eCW1 ([facility]) 0.18/0.215/0.25 mg-35 mcg (28) 10/06/2019 12:00:00 [...] TABLET BY MOUTH EVERY MORNING SOLD: 07/27/2019 [facility] levocetirizine dihydrochloride 5 MG Oral Tablet [...] sterile M[facility] ([facility]) Insurance Providers Payer name Policy type / Coverage type Policy ID Covered constitution party ID Covered constitution party's relationship to clark Policy Clark Plan Information [facility] [id number] [facility] [id number] Preferred Provider Organization (PPO) [id number] ANSI-Medicaid [id number] ANSI-Medicaid [id number] ANSI-Medicaid [id number] ANSI-Medicaid [id number] [facility] Community Plan Commercial Self AMERICHOICE UNHC XIX HMO -I/P [id number] 18 [id number] UNHC AMERICHOICE XIX -HMO [id number] 18 [id number] [facility] P [id number] S [id number] [facility] [id number] S [id number] [facility] [place] [id number] 2 [id number] [employer] MEDICAID MCD HMO [id number] S [id number] Problems, Conditions, and Diagnoses Code Display Name Description Problem Type Effective Dates Data Source(s) E78.5 Dyslipidemia Dyslipidemia Problem 06/09/2019 12:00:00 A M EST eCW1 ([facility]) E78.5 Dyslipidemia Dyslipidemia Problem 06/09/2019 12:00:00 A M EST eCW1 ([facility]) Surgeries/Procedures Procedure Description Date Indications Data [...] [facility] [place]) Results ID Date Data Source [id number] 01/03/2020 10:46:00 AM EDT [facility] ([facility] [place]) Name [...] results) [facility] ([facility]) Laboratory test finding (navigational concept) 3.4 % 0.0-3.0 Above high normal [facility] ([facility]) Laboratory test finding (navigational concept) [...] results) [facility] ([facility]) Laboratory test finding (navigational concept) 0.0 % 0 -0 Normal (applies to non- numeric results) [facility] ([facility] ) Laboratory test finding (navigational concept) 0.6 10 0 .0-0.8 Normal (applies to non-numeric results) [facility] ([facility]) Laboratory test finding (navigational concept) 2.2 10 1 .5-5.0 Normal (applies to non-numeric results) [facility] ([facility]) Laboratory test finding (navigational concept) 0.2 10 0 .0-0.5 Normal (applies to non-numeric results) [facility] ([facility]) Laboratory test finding (navigational concept) 0.0 10 0 .0-0.2 Normal (applies to non-numeric results) [facility] ([facility]) ID Date Data Source [id number] 01/03/2020 10:46:00 AM EDT [facility] ([facility]) Name Value Range Interpretation Code Description Data Anabell rce(s) Supporting Document(s) Laboratory test finding (navigational concept) 11 mg/dL 7 -18 Normal (applies to non-numeric results) [facility] ([facility]) Laboratory test finding (navigational concept) 97 mg/dL 7 0-100 Normal (applies to non-numeric results) [facility] ([facility]) Laboratory test finding (navigational concept) [...] Little GFR Left</content>
<content>ESRD GFR <15 on FINAL FINISHER</content>
<content></content> Laboratory test finding (navigational concept) 4.0 [...] Never Smoker completed Never S peace eCW1 ([facility]) Vital Signs ID Date Data Source [...] blood pressure 85 mm[Hg] 85 mm[Hg] eCW1 ([facility]) Systolic blood pressure 131 mm[Hg] 131 mm[Hg] e CW1 ([facility]) Body temperature 97.8 [degF] 97.8 [degF] eCW1 ( [facility]) Respiratory rate 20 /min 20 /min eCW1 ([facility]) Heart rate 72 /min 72 /min eCW1 ([facility]) Body mass index (BMI) [Ratio] 40.83 kg/m2 40.83 kg/m2 eCW1 ([facility]) Body height [in_i] eCW1 ([facility]) Body weight 253 [lb_av] 253 [lb_av] eCW1 ([facility]) Body mass index (BMI) [Ratio] 41.4 [...] (1000 UT) 10/07/2019 12:00:00 AM EDT eCW1 ([facility]) Levothyroxine Sodium 0.025 MG Oral Tablet [Synthroid] 10/07/2019 12:00:00 AM EDT eCW1 ([facility]) Xolair 150 mg/mL subcutaneous syringe 12/02/2018 09:14:33 AM EDT MARY ([facility]) Water 1000 MG/ML Injectable Solution 08/17/2018 09:15:42 AM EDT [facility] ([facility])
== END 2020-06-24 07:48 | disposition home or self-care (01) ==
LOC: M ED 06:46
DX: S00.01XA Abrasion of scalp, initial encounter (principal); X58.XXXA Exposure to other specified factors, initial encounter; Y92.099 Unspecified place in other non-institutional residence as the place of occurrence of the external cause; Y93.9 Activity, unspecified; Y99.9 Unspecified external cause status; E03.9 Hypothyroidism, unspecified; Z79.3 Long term (current) use of hormonal contraceptives

== ENCOUNTER → 2020-07-30 | Outpatient (REF) | payer OTHER ==
[~2020-07-30] MED LIST: TRI-TAB16
[2020-07-30 16:26] LABS: CHOLESTEROL RISK RATIO 2.855 (<5); THYROID STIMULATING HORMONE 3.2 uIU/ML (0.358-3.740)
[2020-07-30 16:28] LABS: TOTAL 25(OH) VITAMIN D 15.4 NG/ML (30.0-100.0)
== END ==
LOC: M SFHCCLAY 10:58
PROVIDERS: ATTEND Nurse Practitioner Family
DX: E78.5 Hyperlipidemia, unspecified (principal); E03.9 Hypothyroidism, unspecified; E55.9 Vitamin D deficiency, unspecified

== ENCOUNTER → 2020-08-14 | Outpatient (CLI) | payer OTHER ==
--- NOTE | 2020-08-14 09:49 | REPMRS ---
Patient History The patient states she had a clinical breast exam in March 2020. Family history of breast cancer at age 43 in mother, breast cancer at age 35 in maternal cousin, ovarian cancer at age 50 in paternal grandmother. Taking hormonal contraceptives for 6 years. 3D TOMOSYNTHESIS WAS PERFORMED. Xcovery breast density b. Digital Woman Screen Mammo: August 14, 2020 - Exam #: [id number] Bilateral CC and MLO view(s) were taken. Technologist: Kay Carlson, Technologist No prior studies available for comparison. FINDINGS: There are scattered fibroglandular densities. There is a mild amount of residual fibroglandular tissue which is fairly symmetric. There is no dominant mass, architectural distortion, or clustered microcalcification suggestive of malignancy. Assessment: BI-RADS/ACR category 1 mammogram. Negative Mammogram. Recommendation Routine screening mammogram in 1 year (for women over age 40). This mammogram was interpreted with the aid of an FDA-approved computer-aided dectection system. THE LIFETIME RISK OF BREAST CANCER IS 28.6%, THEREFORE SUPPLEMENTAL SCREENING MRI OF THE BREASTS IS RECOMMENDED IN 6 MONTHS. Electronically Signed By: Gennaro Rodriguez MD 08/14/20 0918
== END ==
LOC: M WHC 08:49
PROVIDERS: ATTEND Obstetrics & Gynecology
DX: Z12.31 Encounter for screening mammogram for malignant neoplasm of breast (principal); Z80.3 Family history of malignant neoplasm of breast; Z92.0 Personal history of contraception

== ENCOUNTER → 2020-10-29 | Outpatient (REF) | payer OTHER ==
[2020-10-29 17:11] LABS: HEMATOCRIT 37.1 % (36.0-47.0); HEMOGLOBIN 11.9 g/dl (12.0-15.5); MEAN CORPUSCULAR HEMOGLOBIN 30.1 pg (27.0-33.0); MEAN CORPUSCULAR HGB CONC 32.1 g/dl (32.0-36.5); MEAN CORPUSCULAR VOLUME 93.9 fl (80.0-96.0); PLATELET COUNT, AUTOMATED 264 10^3/uL (150-450); RED BLOOD COUNT 3.95 10^6/uL (4.00-5.40); WHITE BLOOD COUNT 7.2 10^3/uL (4.0-10.0)
[2020-10-29 19:01] LABS: ALBUMIN 3.3 GM/DL (3.2-5.2); ALT/SGPT 17 U/L (12-78); BILIRUBIN,TOTAL 0.2 MG/DL (0.2-1.0); BLOOD UREA NITROGEN 13 MG/DL (7-18); CALCIUM LEVEL 8.9 MG/DL (8.5-10.1); CARBON DIOXIDE LEVEL 25 MEQ/L (21-32); CHLORIDE LEVEL 105 MEQ/L (98-107); CHOLESTEROL LEVEL 178 MG/DL (<200); CREATININE FOR GFR 0.84 MG/DL (0.55-1.30); GLOMERULAR FILTRATION RATE > 60.0 (>60); GLUCOSE, FASTING 86 MG/DL (70-100); HDL CHOLESTEROL 62 MG/DL (>40); LDL CHOLESTEROL 84 MG/DL (<100); NON-HDL-C 116 MG/DL; POTASSIUM SERUM 3.7 MEQ/L (3.5-5.1); SODIUM LEVEL 137 MEQ/L (136-145); TOTAL 25(OH) VITAMIN D 22.7 NG/ML (30.0-100.0); TOTAL PROTEIN 7.1 GM/DL (6.4-8.2); TRIGLYCERIDES LEVEL 159 MG/DL (<150)
== END ==
LOC: M SFHCCLAY 10:43
PROVIDERS: ATTEND Nurse Practitioner Family
DX: E78.5 Hyperlipidemia, unspecified (principal); E03.9 Hypothyroidism, unspecified; E55.9 Vitamin D deficiency, unspecified

== ENCOUNTER → 2021-01-31 | Outpatient (CLI) | payer OTHER ==
--- NOTE | 2021-01-31 15:23 | REP ---
INDICATION: M54.2 NECK PAIN. COMPARISON: None. TECHNIQUE: Seven views including flexion extension lateral projections. FINDINGS: Cervical vertebral body heights are preserved. Alignment is normal. Flexion extension view show no subluxation or instability. There is degenerative disc narrowing and anterior osteophyte formation at the C 6 7 disc level. Prevertebral soft tissues are unremarkable. Open mouth odontoid view shows normal C1-C2 alignment. Oblique images demonstrate normally aligned facets and intact neural foramina. IMPRESSION: Degenerative disc spurring and disc space narrowing at C6-C7. No acute bony abnormality. <Electronically signed by Shakeel Varghese > 01/31/21 [id number]
--- NOTE | 2021-01-31 15:24 | REP ---
INDICATION: M54.6 ACUTE RIGHT SIDED THORACIC BACK PAIN. COMPARISON: None. TECHNIQUE: Three views. FINDINGS: Thoracic vertebral body heights are preserved. Alignment is normal. Pedicle and posterior elements are intact. No paravertebral soft tissue mass is seen. There is a minimal dextroconvex midthoracic curvature. Disc spaces are maintained. Swimmer's lateral view shows degenerative disc disease at C5-6 and C6-7. IMPRESSION: Degenerative disc changes in the cervical spine. Minimal dextroconvex thoracic curvature. Otherwise negative. <Electronically signed by Shakeel Varghese > 01/31/21 [id number]
== END ==
LOC: M CLY 13:54
PROVIDERS: ATTEND Physician Assistant
DX: M54.2 Cervicalgia (principal); M54.6 Pain in thoracic spine

== ENCOUNTER → 2021-03-27 | Outpatient (REF) | payer OTHER ==
[2021-03-27 16:21] LABS: BASO % 0.2 % (0.0-1.0); EOS # 0.3 10^3/uL (0.0-0.5); EOS % 3.4 % (0.0-3.0); HEMATOCRIT 37.5 % (36.0-47.0); HEMOGLOBIN 11.9 g/dl (12.0-15.5); LYMPH # 2.6 10^3/uL (1.5-5.0); LYMPH % 30.8 % (24.0-44.0); MEAN CORPUSCULAR HEMOGLOBIN 30.2 pg (27.0-33.0); MEAN CORPUSCULAR HGB CONC 31.7 g/dl (32.0-36.5); MEAN CORPUSCULAR VOLUME 95.2 fl (80.0-96.0); MONO # 0.7 10^3/uL (0.0-0.8); MONO % 8.7 % (2.0-8.0); NEUTROPHILS # 4.8 10^3/uL (1.5-8.5); NEUTROPHILS % 56.4 % (36.0-66.0); PLATELET COUNT, AUTOMATED 253 10^3/uL (150-450); RED BLOOD COUNT 3.94 10^6/uL (4.00-5.40); WHITE BLOOD COUNT 8.5 10^3/uL (4.0-10.0)
[2021-03-27 16:42] LABS: ALBUMIN 3.2 GM/DL (3.2-5.2); ALT/SGPT 30 U/L (12-78); BILIRUBIN,TOTAL 0.4 MG/DL (0.2-1.0); BLOOD UREA NITROGEN 11 MG/DL (7-18); CALCIUM LEVEL 9.3 MG/DL (8.5-10.1); CARBON DIOXIDE LEVEL 27 MEQ/L (21-32); CHLORIDE LEVEL 106 MEQ/L (98-107); CHOLESTEROL LEVEL 194 MG/DL (<200); CHOLESTEROL RISK RATIO 3.592 (<5); CREATININE FOR GFR 0.83 MG/DL (0.55-1.30); FREE T4 0.96 NG/DL (0.76-1.46); GLOMERULAR FILTRATION RATE > 60.0 (>60); GLUCOSE, FASTING 93 MG/DL (70-100); HDL CHOLESTEROL 54 MG/DL (>40); LDL CHOLESTEROL 109 MG/DL (<100); NON-HDL-C 140 MG/DL; POTASSIUM SERUM 4.4 MEQ/L (3.5-5.1); SODIUM LEVEL 139 MEQ/L (136-145); TOTAL PROTEIN 6.9 GM/DL (6.4-8.2); TRIGLYCERIDES LEVEL 155 MG/DL (<150)
[2021-03-27 16:44] LABS: THYROGLOBULIN ANTIBODY 24.8 U/ML (<60.0); THYROID PEROXIDASE ANTIBODY 192.5 U/ML (<60.0); TOTAL 25(OH) VITAMIN D 25.3 NG/ML (30.0-100.0)
[2021-03-27 17:46] LABS: HEMOGLOBIN A1c 5.5 %
== END ==
LOC: M SFHCCLAY 10:25
PROVIDERS: ATTEND Nurse Practitioner Family
DX: E03.9 Hypothyroidism, unspecified (principal); E55.9 Vitamin D deficiency, unspecified; L50.1 Idiopathic urticaria; R03.0 Elevated blood-pressure reading, without diagnosis of hypertension; Z13.1 Encounter for screening for diabetes mellitus

== ENCOUNTER → 2021-04-10 | Outpatient (REF) | payer OTHER | LOC: M SFHCCLAY 10:23 | PROVIDERS: ATTEND Nurse Practitioner Family | DX: Z53.9 Procedure and treatment not carried out, unspecified reason (principal); J06.9 Acute upper respiratory infection, unspecified; R19.7 Diarrhea, unspecified ==

== ENCOUNTER 2021-04-12 08:49 | Outpatient (CLI) | payer OTHER ==
[~2021-04-12] VITALS: Ht 165.1 cm; Wt 117.9 kg
[~2021-04-12 08:49] MED LIST changes: +ALBUTEROL 90 MCG/ACT 8GM HFA INHALER INH PRN; +ALBUTEROL SULFATE 2.5 MG/0.5 ML INH NEB SOLN INH PRN; +EPINEPHrine INJ 1 MG/ML 1ML AMP IM PRN; +NS 1,000 ML IV SCH; +diphenhydrAMINE 50MG/ML VIAL (J1200) IV PRN; +methylPREDNISolone 125MG 2ML VIAL IV PRN
[2021-04-12 09:16] VITALS: BP 140/66
[2021-04-12 09:46] VITALS: BP 120/69
[2021-04-12] MEDS ORDERED: diphenhydrAMINE 50MG CAP PO ONE (10:00)
[2021-04-12] MEDS ORDERED: methylPREDNISolone 40MG 1ML VIAL IV ONE (10:00)
[2021-04-12] MEDS ORDERED: [UNRECOGNIZED DRUG - OTHER] IV ONE (10:00)
[2021-04-12] MEDS ORDERED: ACETAMINOPHEN TAB 650MG DOSE (2X325MG) PO ONE (10:00)
[2021-04-12 10:16] VITALS: BP 126/64
[2021-04-12 11:16] VITALS: BP 134/60
== END 2021-04-12 11:16 | disposition home or self-care (01) ==
LOC: M OPCLI4PR 08:49
PROVIDERS: ATTEND Nurse Practitioner Family
DX: U07.1 COVID-19 (principal)
CPT/HCPCS: 96375; J2920; M0243

== ENCOUNTER → 2021-06-19 | Outpatient (CLI) | payer OTHER ==
[~2021-06-19] MED LIST changes: -ALBUTEROL 90 MCG/ACT 8GM HFA INHALER INH PRN; -ALBUTEROL SULFATE 2.5 MG/0.5 ML INH NEB SOLN INH PRN; -EPINEPHrine INJ 1 MG/ML 1ML AMP IM PRN; -NS 1,000 ML IV SCH; +PROHANCE 279.3MG/ML 15ML VIAL As Ordered ONE; +PROHANCE 279.3MG/ML 5ML VIAL As Ordered ONE; -diphenhydrAMINE 50MG/ML VIAL (J1200) IV PRN; -methylPREDNISolone 125MG 2ML VIAL IV PRN
== END ==
LOC: M RAD 12:46
PROVIDERS: ATTEND Advanced Practice Midwife
DX: R92.8 Other abnormal and inconclusive findings on diagnostic imaging of breast (principal); R59.0 Localized enlarged lymph nodes; Z80.9 Family history of malignant neoplasm, unspecified
CPT/HCPCS: 77049; A9576

== ENCOUNTER → 2021-07-11 | Outpatient (CLI) | payer OTHER ==
[~2021-07-11] MED LIST changes: -PROHANCE 279.3MG/ML 15ML VIAL As Ordered ONE; -PROHANCE 279.3MG/ML 5ML VIAL As Ordered ONE
== END ==
LOC: M RAD 14:29
PROVIDERS: ATTEND Surgery
DX: R92.8 Other abnormal and inconclusive findings on diagnostic imaging of breast (principal); R59.9 Enlarged lymph nodes, unspecified

== ENCOUNTER → 2022-01-21 | Outpatient (CLI) | payer OTHER ==
[~2022-01-21] MED LIST changes: +ACET1TAB55 PO; +LEVOTAB10 PO; +THERTAB52 PO; +XOLA75IN SC
== END ==
LOC: M WHC 10:03
PROVIDERS: ATTEND Surgery
DX: R92.8 Other abnormal and inconclusive findings on diagnostic imaging of breast (principal); R59.9 Enlarged lymph nodes, unspecified; Z97.8 Presence of other specified devices

== ENCOUNTER → 2022-02-18 | Outpatient (CLI) | payer OTHER ==
[~2022-02-18] MED LIST changes: +HYDR-3363 PO
== END ==
LOC: M WHC 07:50
PROVIDERS: ATTEND Surgery
DX: Z12.31 Encounter for screening mammogram for malignant neoplasm of breast (principal)

== ENCOUNTER → 2022-02-24 | Outpatient (REF) | payer OTHER ==
[2022-02-24 12:13] LABS: BASO % 0.5 % (0.0-1.0); EOS # 0.2 10^3/uL (0.0-0.5); EOS % 2.3 % (0.0-3.0); HEMATOCRIT 37.6 % (36.0-47.0); HEMOGLOBIN 12.3 g/dl (12.0-15.5); LYMPH % 45.5 % (24.0-44.0); MEAN CORPUSCULAR HEMOGLOBIN 30.8 pg (27.0-33.0); MEAN CORPUSCULAR HGB CONC 32.7 g/dl (32.0-36.5); MEAN CORPUSCULAR VOLUME 94.2 fl (80.0-96.0); MONO # 0.6 10^3/uL (0.0-0.8); MONO % 8.9 % (2.0-8.0); NEUTROPHILS # 2.8 10^3/uL (1.5-8.5); NEUTROPHILS % 42.6 % (36.0-66.0); PLATELET COUNT, AUTOMATED 290 10^3/uL (150-450); RED BLOOD COUNT 3.99 10^6/uL (4.00-5.40); WHITE BLOOD COUNT 6.5 10^3/uL (4.0-10.0)
[2022-02-24 12:51] LABS: HEMOGLOBIN A1c 5.4 %
[2022-02-24 13:10] LABS: ALBUMIN 3.6 GM/DL (3.2-5.2); ALT/SGPT 18 U/L (12-78); BILIRUBIN,TOTAL 0.6 MG/DL (0.2-1.0); BLOOD UREA NITROGEN 7 MG/DL (7-18); CALCIUM LEVEL 9.4 MG/DL (8.5-10.1); CARBON DIOXIDE LEVEL 31 MEQ/L (21-32); CHLORIDE LEVEL 104 MEQ/L (98-107); CHOLESTEROL LEVEL 196 MG/DL (<200); CHOLESTEROL RISK RATIO 2.925 (<5); CREATININE FOR GFR 0.92 MG/DL (0.55-1.30); FREE T4 1.11 NG/DL (0.76-1.46); GLOMERULAR FILTRATION RATE > 60.0 (>60); GLUCOSE, FASTING 89 MG/DL (70-100); HDL CHOLESTEROL 67 MG/DL (>40); LDL CHOLESTEROL 107 MG/DL (<100); NON-HDL-C 129 MG/DL; POTASSIUM SERUM 3.8 MEQ/L (3.5-5.1); SODIUM LEVEL 139 MEQ/L (136-145); TOTAL PROTEIN 7.4 GM/DL (6.4-8.2); TRIGLYCERIDES LEVEL 112 MG/DL (<150)
[2022-02-24 13:31] LABS: ERYTHROCYTE SEDIMENTATION RATE 21 mm/hr (0-20)
[2022-02-24 13:56] LABS: TOTAL 25(OH) VITAMIN D 25.7 NG/ML (30.0-100.0)
== END ==
LOC: M SFHCCLAY 09:38
PROVIDERS: ATTEND Nurse Practitioner Family
DX: E03.9 Hypothyroidism, unspecified (principal); E55.9 Vitamin D deficiency, unspecified; L50.1 Idiopathic urticaria; R03.0 Elevated blood-pressure reading, without diagnosis of hypertension; M79.18 Myalgia, other site; Z13.1 Encounter for screening for diabetes mellitus

== ENCOUNTER → 2022-05-01 | Outpatient (REF) | payer OTHER ==
[2022-05-01 19:47] LABS: RSV AMPLIFICATION NEGATIVE (NEGATIVE)
== END ==
LOC: M SFHCPLAZ 17:05
PROVIDERS: ATTEND Physician Assistant
DX: R50.9 Fever, unspecified (principal); R05.1 Acute cough

== ENCOUNTER 2022-06-20 12:53 | Emergency (ER) | payer OTHER ==
[~2022-06-20] VITALS: Ht 165.1 cm; Wt 92.9 kg
[2022-06-20 12:54] VITALS: BP 140/76
[2022-06-20] MEDS ORDERED: BOOSTRIX/ADACEL VACCINE (DIPHTH/PERTUSS/ACELL/TETANUS) 0.5ML SYR IM ONE (14:55)
[2022-06-20] MEDS ORDERED: AMOX875T2 PO ×2 (15:33→15:37)
== END 2022-06-20 15:48 | disposition home or self-care (01) ==
LOC: M ED 12:53
DX: S63.92XA Sprain of unspecified part of left wrist and hand, initial encounter (principal); W54.0XXA Bitten by dog, initial encounter; F10.10 Alcohol abuse, uncomplicated; Y92.009 Unspecified place in unspecified non-institutional (private) residence as the place of occurrence of the external cause; Z79.2 Long term (current) use of antibiotics; Z79.02 Long term (current) use of antithrombotics/antiplatelets; Z79.899 Other long term (current) drug therapy